=== PATIENT | female | born 1965 | race Caucasian/White ===

== ENCOUNTER 2024-06-29 13:12 | Outpatient (AMB) | payer BC, SELFPAY ==
--- NOTE | 2024-06-29 13:24 | A.OFFPC_ITS ---
Vital Signs 06/29/24 13:30 Height 5 ft 2 in Weight 148 lb 4 oz BMI 27.1 BP 110/72 Blood Pressure Location Lt brachial Position Sitting Respiration 12 Pulse 73 Pulse Source Pulse Oximeter Pulse Oximetry (%) 98 Oxygen Delivery Method Room Air Intake Visit Reasons: Annual pe Intake Note: New patient visit Lien Searcher Required: No Allergies No Known Allergies Allergy (Verified 06/29/24 13:24) Tobacco use date assessed: 06/29/24 Dental Screening Dental Screen Date: 06/29/24 Did you have a dental visit in the last 12 months?: Yes Did you have a dental problem in the last 6 months where you did not have access to dental care?: Yes Was dental information given to patient?: Patient has dentist HPI HPI Comments History of Present Illness Details The is a 59 year old female wih a past medical history of GERD, menopause, OA, seasonal allergies, endomteroioid carcinoma, cervical DDD presenting for follow up Heme/Onc: 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 Underwent hysterectomy, BLSO and left external iliace and right obturator sentinel LN biopsy. Follow ups are out to annually GI: Had EGD with Dr Newman. No H pylori or barretts OA: She has a history of C4-C7 cervical fusion and bilateral hip replacement surgeries Got an 11 and 12 year old foster children. Doing well Mammo: to be scheduled Cologuard 04/02/2022 [facility] Surgical History History of bilateral breast reduction surgery H/O section History of right hip replacement History of left hip replacement H/O esophagogastroduodenoscopy S/P complete hysterectomy Family History Mother Alcoholism Lupus (systemic lupus erythematosus) Father Alcoholism Non Hodgkin's lymphoma Paternal Grandmother Depression Other Substance use Social History Housing: House Alcohol intake: former Comment: Hasnt had a drink in 4 years Patient Tobacco Use Status: Former Tobacco user Cigarettes Per Day: 4 Years Smoked: 1 e-Cigarette/Vaping Use: Never Used service: No Current occupational status: employed 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 1. Little interest or pleasure in doing things: not at all 2. Feeling down, depressed, or hopeless: not at all 3. Trouble falling or staying asleep, or sleeping too much: not at all 4. Feeling tired or having little energy: not at all 5. Poor appetite or overeating: not at all 6. Feeling bad about yourself - or that you are a failure or have let yourself or your family down: not at all 7. Trouble concentrating on things, such as reading the newspaper or watching television: not at all 8. Moving or speaking so slowly that other people could have noticed. Or the op posite - being so fidgety or restless that you have been moving around a lot more than usual: not at all 9. Thoughts that you would be better off or of hurting yourself in some way: not at all Total score: 0 Depression Screening Interpretation: Negative Depression Screening Done: Yes 32407 - PHQ-9 Billing: Yes Source: Developed by Drs. Ga Quiroga, Maria Alejandra Stanley, Joey Rodriguez and colleagues, with an educational elizabeth from [employer]. Thrive Questionnaire Date Thrive assessed: 06/29/24 I am a: Patient What is your living situation today?: I have a steady place to live Within the past 12 months, did the food you bought not last and you didn't have the money to get more?: Never true Within the past 12 months, did you worry whether your food would run out before you got money to buy more?: Never true Do you have trouble paying for medicines?: No Do you have trouble getting transportation to medical appointments?: No Do you have trouble paying your heating and electricity bill?: No Do you have trouble taking care of your child, family member or friend?: No Do you have trouble with day-to-day activities such as bathing, preparing meals, shopping, managing finances, etc.?: No Are you currently unemployed and looking for a job?: No Are you interested in more education?: No Please select the resources that you would like help with: None Currently or been in a relationship where the following occur: No concerns reported THRIVE Score: 0 AUDIT C Alcohol Use Questionnaire (AUDIT-C) 1. How often do you have a drink containing alcohol?: Never 3. How often do you have six or more drinks on one occasion?: Never Total Score: 0 PUNEET-7 AMB Questionnaire PUNEET-7 Date PUNEET - 7 assessed: 06/29/24 Feeling nervous, anxious, or on edge: 0 = Not at all Not being able to stop or control worryin = Not at all Worrying too much about different things: 0 = Not at all Trouble relaxin = Not at all Being so restless that it is hard to sit still: 0 = Not at all Becoming easily annoyed or irritable: 0 = Not at all Feeling afraid as if something awful might happen: 0 = Not at all Total PUNEET-7 score (0-4 normal; 5-9 mild; 10-14 moderate; 15-21 severe): 0 Source: Developed by Drs. Ga Quiroga, Maria Alejandra Stanley, Joey Rodriguez and colleagues, with an educational elizabeth from [employer]. PUNEET-7 Assessment Billing PUNEET-7 Assessment Tool: PUNEET-7 Assessment 14318 Physical exam (Primary Care) Vital Signs: Last Vital Signs Pulse 73 06/29/24 13:30 Resp 12 06/29/24 13:30 BP 110/72 06/29/24 13:30 Pulse Ox 98 06/29/24 13:30 Oxygen Delivery Method Room Air 06/29/24 13:30 BMI result Body Mass Index 27.1 Tobacco/Smoking Status: Tobacco use Status Tobacco use date assessed 06/29/24 06/29/24 13:33 Patient Tobacco Use Status Former Tobacco user 06/29/24 13:33 e-Cigarette/Vaping Use Never Used 06/29/24 13:33 PHQ-9: PHQ-9 Score PHQ-9: Total score 0 06/29/24 13:24 Depression Screening Interpretation: Negative Currently or been in a relationship where the following occur: No concerns reported Coding Level of Care Code Est Pt Level 4 (23339) Diagnoses Endometrial cancer C54.1 Degenerative disc disease, cervical M50.30 Additional Codes PUNEET-7 Assessment Billing - PUNEET-7 Assessment Tool: PUNEET-7 Assessment 99898 ([id number]) Assessment & Plan Assessment & Plan (1) Endometrial cancer: Code(s): C54.1 - Malignant neoplasm of endometrium Category: Medical Plan: 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 Panel Today Z13.0 - Encounter for screening for diseases of the blood and blood-forming organs and certain disorders involving the immune mechanism, Z13.220 - Encounter for screening for lipoid disorders, Z13.228 - Encounter for screening for other metabolic disorders Lipid Panel Today Z13.0 - Encounter for screening for diseases of the blood and blood-forming organs and certain disorders involving the immune mechanism, Z13.220 - Encounter for screening for lipoid disorders, Z13.228 - Encounter for screening for other metabolic disorders IRON PROFILE Today Z86.39 - Personal history of other endocrine, nutritional and metabolic disease
[2024-06-29 13:30] VITALS: BP 110/72; PULSE 73; RESP 12; O2SAT 98; BMI 27.1
== END 2024-06-29 13:54 | disposition home or self-care (01) ==
LOC: HO.HMCFM 13:12
PROVIDERS: PCP Internal Medicine; Visit Provider Internal Medicine
DX: C54.1 Malignant neoplasm of endometrium (principal); M50.30 Other cervical disc degeneration, unspecified cervical region

== ENCOUNTER → 2024-06-29 13:12 | Outpatient (BNVA) | payer BC, SELFPAY | PROVIDERS: Visit Provider Internal Medicine | DX: C54.1 Malignant neoplasm of endometrium (principal); M50.30 Other cervical disc degeneration, unspecified cervical region | CPT/HCPCS: 96127 ==

== ENCOUNTER 2024-06-29 14:03 | Outpatient (REF) | payer BC, SELFPAY ==
[2024-06-29 17:45] LABS: MANUAL DIFF FLAG NO
[2024-06-29 18:12] LABS: Alanine Aminotransferase 19 U/L (0-31); Alkaline Phosphatase 65 U/L (39-117); Anion Gap 8 (12-20); Aspartate Amino Transferase 19 U/L (5-31); Bilirubin Total 0.3 mg/dL (0.0-1.0); Blood Urea Nitrogen 7 mg/dL (9-16); Calcium 9.6 mg/dL (8.4-10.2); Carbon Dioxide 27 mmol/L (22-29); Chloride 107 mmol/L (96-108); Cholesterol 200 mg/dL (<200); Estimated Glomerular Filt Rate > 60; Glucose Random 89 mg/dL (60-115); HDL Cholesterol 54 mg/dL (>40); Iron 61 mcg/dL (30-160); LDL Cholesterol Calculated 120 mg/dL (<100); Percent Iron Saturation 24 % (15-50); Potassium 4.3 mmol/L (3.3-5.1); Sodium 138 mmol/L (135-145); Total Iron Binding Capacity 252 mcg/dL (228-428); Total Protein 6.8 g/dL (6.5-8.0); Triglycerides 133 mg/dL (<150); Unsaturated Iron Binding 191 ug/dL
[2024-06-29 18:19] LABS: Basophils Absolute Auto 0.1 X10*3/uL (0.0-0.2); Basophils Percent Auto 0.8 % (0-2); Eosinophils Absolute Auto 0.2 X10*3/uL (0.0-0.4); Eosinophils Percent Auto 2.6 % (0-4); Hematocrit 39.6 % (37.0-47.0); Hemoglobin 13.1 g/dl (12.0-16.0); Imm Gran Abs Auto 0.02 X10*3/uL (0.00-0.03); Imm Gran Pct Auto 0.2 % (0.0-0.4); Lymphocytes Absolute Auto 3.3 X10*3/uL (1.2-4.9); Lymphocytes Percent Auto 38.6 % (20-40); Mean Corpuscular HGB Conc 33.1 g/dl (31.0-35.0); Mean Corpuscular Hemoglobin 28.5 pg (27.0-33.0); Mean Corpuscular Volume 86.3 fL (80.0-98.0); Mean Platelet Volume 8.9 fL (9.4-12.3); Monocytes Absolute Auto 0.6 X10*3/uL (0.1-1.2); Monocytes Percent Auto 6.5 % (2-11); Neutrophils Absolute Auto 4.4 x10*3/uL (2.0-8.3); Neutrophils Percent Auto 51.3 % (45-73); Platelet Count 344 X10*3/uL (160-400); Red Blood Count 4.59 X10*6/uL (4.20-5.50); Red Cell Distribution Width 13.1 % (11.0-16.0); White Blood Count 8.6 X10*3/uL (4.8-10.8)
== END 2024-06-29 14:04 | disposition home or self-care (01) ==
LOC: HO.WFDLDS 14:03
PROVIDERS: Visit Provider Internal Medicine
DX: Z13.0 Encounter for screening for diseases of the blood and blood-forming organs and certain disorders involving the immune mechanism (principal); Z13.228 Encounter for screening for other metabolic disorders; Z13.220 Encounter for screening for lipoid disorders; Z86.39 Personal history of other endocrine, nutritional and metabolic disease
CPT/HCPCS: 36415; 80053; 80061; 83540; 85025

== ENCOUNTER 2024-08-31 09:25 | Outpatient (REF) | payer BC, SELFPAY ==
--- NOTE | ~2024-08-31 | XR_ITS ---
EXAMINATION: XR SHOULDER 2 OR MORE VIEWS RIGHT HISTORY: M25.511 - Pain in right shoulder COMPARISON: There are no prior studies available for comparison. FINDINGS: Two views of the right shoulder are submitted. Osseous mineralization is normal. There is no fracture or dislocation. There is severe osteoarthritis of the AC joint with joint space narrowing and osteophyte formation. The glenohumeral joint is maintained. The soft tissues are unremarkable. A fusion plate is noted in the cervical spine. XR/XR shoulder RT min 2V IMPRESSION: Severe osteoarthritis of the AC joint. Electronically signed by: Ga Rodgers MD 09/03/2024 08:47 AM EST
== END 2024-08-31 09:26 | disposition home or self-care (01) ==
LOC: HO.HOSX 09:25
PROVIDERS: Visit Provider Orthopaedic Surgery
DX: M25.311 Other instability, right shoulder (principal); M25.511 Pain in right shoulder
CPT/HCPCS: 73030

== ENCOUNTER 2024-08-31 12:47 | Outpatient (AMB) | payer BC, SELFPAY ==
[2024-08-31 12:55] VITALS: BMI 27.1
--- NOTE | 2024-08-31 12:55 | MHC.OFFVIS ---
Vital Signs 08/31/24 12:55 Height 5 ft 2 in Weight 148 lb 4 oz BMI 27.1 Intake Visit Reasons: Right shoulder pain and weakness Intake Note: Sumaya is a 59 year old female who presents with complaints of progressively worsening right shoulder pain and weakness. The patient states that she injured her right shoulder approximately 10 years ago. Since that time her symptoms have gotten worse. She has failed the last 6 weeks of conservative treatment. She has tried working with a geriatric personal care aide at the gym which aggravated her pain. She has also done physical therapy exercises which gave her minimal relief. She has tried Tylenol and anti-inflammatory medicines which gave her only mild relief. The patient states that she has had cortisone injections in the past which gave her no relief. The patient reports difficulty lifting her right hand above shoulder height. Allergies No Known Allergies Allergy (Verified 08/31/24 12:55) Medication List - Last Reviewed 08/31/24 by FLAQUITA Trejo ondansetron 4 mg PO Q8H PRN 30 days triamcinolone acetonide 0.1% 1 appl topical BID valacyclovir 2,000 mg (2 x 1 gram) PO BID PRN 1 day PFSH Surgical History History of bilateral breast reduction surgery H/O section History of right hip replacement History of left hip replacement H/O esophagogastroduodenoscopy S/P complete hysterectomy Family History Mother Alcoholism Lupus (systemic lupus erythematosus) Father Alcoholism Non Hodgkin's lymphoma Paternal Grandmother Depression Other Substance use Social History Housing: House Alcohol intake: former Comment: Hasnt had a drink in 4 years Patient Tobacco Use Status: Former Tobacco user Cigarettes Per Day: 4 Years Smoked: 1 e-Cigarette/Vaping Use: Never Used service: No Current occupational status: employed 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/hazards: Yes (works on around kids, illness) Cognitive needs: No Hearing needs: No Vision needs: No Physical Exam Vital Signs: BMI result Body Mass Index 27.1 Const Other: Well-nourished well-developed very friendly female awake alert and oriented x3 in no acute distress Extrem Other: Bilateral upper extremity examination shows good capillary refill, no skin lesions noted, normal sensation light touch Right shoulder examination shows decreased range of motion when compared to her left shoulder, 4+ out of 5 strength with supraspinatus testing, positive impingement signs, tenderness over her acromioclavicular joint, no instability Results Reviewed Results Reviewed: X-rays of the patient's right shoulder show severe acromioclavicular joint narrowing, a type 2 acromion, no acute bony abnormalities Assessment & Plan Assessment & Plan (1) Rotator cuff insufficiency of right shoulder: Code(s): M25.311 - Other instability, right shoulder Category: Medical Plan Ms. Luevano presents with progressively worsening right shoulder pain and weakness due to impingement syndrome and possible full-thickness rotator cuff tearing. Thus, I will send the patient for an MRI of her right shoulder for further evaluation. I will see her back once the MRI is completed to discuss the findings and treatment options. She will continue with her [id number] exercises in the meantime to prevent stiffness. Feel free to call me at any time should questions regarding her orthopedic management arise. I spent 21 minutes in reviewing the patient's records and imaging studies, seeing the patient and documenting in the medical record. Orders: Orders XR shoulder RT min 2V Today M25.511 - Pain in right shoulder MR shoulder RT wo con Today M25.311 - Other instability, right shoulder Coding Level of Care Code Est Pt Level 3 (45640) Complex EM visit Add On G2211 Diagnoses Rotator cuff insufficiency of right shoulder M25.311
== END 2024-08-31 13:21 | disposition home or self-care (01) ==
PROVIDERS: PCP Internal Medicine; Visit Provider Orthopaedic Surgery
DX: M25.311 Other instability, right shoulder (principal)
CPT/HCPCS: 99213

== ENCOUNTER → 2024-08-31 12:50 | Outpatient (BNV) | payer BC, SELFPAY | PROVIDERS: Visit Provider Radiology Diagnostic Radiology | DX: M19.011 Primary osteoarthritis, right shoulder (principal) | CPT/HCPCS: 73030 ==

== ENCOUNTER → 2024-09-21 09:48 | Outpatient (BNV) | payer BC, SELFPAY | PROVIDERS: PCP Internal Medicine; Visit Provider Radiology Diagnostic Radiology | DX: M75.121 Complete rotator cuff tear or rupture of right shoulder, not specified as traumatic (principal); M67.813 Other specified disorders of tendon, right shoulder; M19.011 Primary osteoarthritis, right shoulder | CPT/HCPCS: 73221 ==

== ENCOUNTER 2024-09-21 09:58 | Outpatient (REF) | payer BC, SELFPAY ==
--- NOTE | ~2024-09-21 | MR_ITS ---
CLINICAL HISTORY: M25.311 - Other instability, right shoulder MR right shoulder without gadolinium Comparison: DX/SR - XR SHOULDER RT MIN 2V - 08/31/24 12:50 EST Findings: No acute fracture or pathologic bone lesion. There is moderate periarticular osteophyte formation at the acromioclavicular and glenohumeral joints. Type II acromion. No effusion. There is full-thickness tearing and atrophy of the entire supraspinatus tendon. There is mild T2 signal elevation diffusely throughout the infraspinatus tendon at the humeral insertion site extending to the musculotendinous junction, indicating tendinopathy. Superimposed low-grade partial-thickness intrasubstance and bursal surface tears of the anterior and mid infraspinatus tendon at the humeral insertion site extending to the musculotendinous junction. Subscapularis and teres minor tendons are intact. No tears of the long head of biceps tendon. Posterior labral undercutting is present. IMPRESSION: 1. Full-thickness tearing and atrophy of the supraspinatus tendon. 2. Infraspinatus tendinopathy with low-grade tearing. 3. Acromioclavicular and glenohumeral joint osteoarthritis. 4. Glenoid labral tearing. This document has been electronically signed by: Marshall Casillas MD on 09/21/2024 14:40:22
--- OUTSIDE RECORDS SUMMARY | 2024-09-21 10:46 | XMS_ITS | Clinical Summary ---
Author Organization [facility] Address [address] [place] [address] Care Team Providers Care Travel Physical Therapist Name Role Phone Susy De Santiago MD Primary Care Provider [phone] Allergies No known active allergies Medications Medication Sig Dispensed Refills Start Date End Date Status meloxicam (MOBIC) 7.5 MG tablet TK 1 T PO D WF 1 03/04/2018 Active raNITIdine (ZANTAC) 150 MG tablet Take 150 mg by mouth 2 (two) times a day. 0 Active traZODone (DESYREL) 100 MG tablet trazodone 100 mg tablet 0 Active SUMAtriptan (IMITREX) 50 MG tablet sumatriptan 50 mg tablet 0 Active sulindac (CLINORIL) 200 MG tablet sulindac 200 mg tablet 0 Active albuterol 108 (90 Base) MCG/ACT inhaler ProAir HFA 90 mcg/actuation aerosol inhaler INHALE 2 PUFFS PO INTO THE LUNGS Q 4 H PRN FOR SOB FOR UP TO 180 DAYS 0 Active phenazopyridine (PYRIDIUM) 100 MG tablet phenazopyridine 100 mg tablet 0 Active oxyCODONE-acetami nophen (PERCOCET) 5-325 MG per tablet oxycodone-acetaminoph en 5 mg-325 mg tablet TK 1 TO 2 TS PO Q 6 H PRN P 0 Active warfarin (COUMADIN) 1 MG tablet 1 07/15/2018 Active oxyCODONE (ROXICODONE) 5 MG immediate release tablet TK 1 TO 2 TS PO Q 4 TO 6 H PRN 0 07/23/2018 Active gabapentin (NEURONTIN) 300 MG capsule 0 07/15/2018 Active enoxaparin (LOVENOX) 40 MG/0.4ML SOLN 1 07/15/2018 Active cyclobenzaprine (FLEXERIL) 5 MG tablet cyclobenzaprine 5 mg tablet 0 Active amoxicillin (AMOXIL) 500 MG tablet Take 4 tabs 1 hour prior to dental procedure 20 tablet 3 07/28/2018 Active Additional Information Patient not taking.Reported on 10/21/2022 warfarin (COUMADIN) 1 MG tablet Take 5 tabs daily or as directed by physician 25 tablet 0 08/05/2018 Active Additional Information Patient not taking.Reported on 10/21/2022 estradiol (ESTRACE) 2 MG tablet Take 1 tablet (2 mg total) by mouth daily. 0 Active progesterone (PROMETRIUM) capsule 200 mg Take 1 capsule (200 mg total) by mouth every night at bedtime. 0 Active Fluticasone Propionate, Inhal, (Flovent Diskus) 250 MCG/ACT AEPB Inhale 250 mcg into the lungs as needed. 0 Active estradiol (Estring) [address] 2 mg vaginally every 3 (three) months. follow package directions 0 Active famotidine (PEPCID) 20 MG tablet Take 1 tablet (20 mg total) by mouth 2 (two) times a day. 0 Active Active Problems Problem Noted Date Diagnosed Date Hamstring strain, right, initial encounter 10/08 Postop check 07/28/2018 Social History Tobacco Use Types Packs/Day Years Used Date Smoking Tobacco: Former Cigarettes Smokeless Tobacco: Former Tobacco Cessation:Counseling Given: Not Answered Alcohol Use Standard Drinks/Week Comments Not Currently 0 (1 standard drink = 0.6 oz pur e alcohol) Sex and Gender Information Value Date Recorded Sex Assigned at Not on file Gender Identity Not on file Sexual Orientation Not on file Job Start Date Occupation Industry Not on file Not on file Not on file Last Filed Vital Signs Vital Sign Reading Time Taken Comments Blood Pressure 125/80 10/21/2022 8:39 AM EST Pulse - - Temperature 36.3 ??C (97.4 ??F) 10/21/2022 8:39 AM ES T Respiratory Rate - - Oxygen Saturation 99% 10/21/2022 8:39 AM EST Inhaled Oxygen Concentration - - Weight 78.9 kg (174 lb) 10/21/2022 8:39 AM EST Height 160 cm (5' 3 ) 10/21/2022 8:39 AM EST Body Mass Index 30.82 10/21/2022 8:39 AM EST Plan of Treatment Health Maintenance Due Date Last Done Comments Hepatitis B Vaccines (1 of 3 - 3-dose series) 1966 Hepatitis C Screening 1966 COVID-19 Vaccine (#1) 1966 Depression Screening 1978 BMI Counseling 02/06/1984 Preventative Health Evaluation 02/06/1984 Cervical Cancer Screening (Pap Smear) 1987 Colon Cancer Screening (Colonoscopy) 2011 Breast Cancer Screening (Mammogram) 02/06/2016 Shingrix-Zoster Vaccine (1 o f 2) 02/06/2016 DTap / Tdap / Td (2 - Td or Tdap) 04/07/2022 04/07/2012, 08/09/1993 Influenza Vaccine (#1) 2024 Pneumococcal Vaccine Aged Out No long er eligible based on patient's age to complete this topic RSV Ped < 20 months Aged Out No longe r eligible based on patient's age to complete this topic Insurance Payer Benefit Plan / Group Subscriber ID Effective Dates Phone Address [facility] [id number] 02/23-Pres ent [address] [place] [address] [facility] [id number] 2020-Pres ent [address] [place] [address] Care Teams Travel Physical Therapist Relationship Specialty Start Date End Date Susy De Santiago MD PCP - General Internal Medicine 09/25/22
--- OUTSIDE RECORDS SUMMARY | 2024-09-21 10:46 | XMS_ITS | Encounter Summary ---
Author Organization [facility] Address [address] [place] [address] Care Team Providers Care Donor Floor Technician Name Role Phone Unavailable Primary Care Provider Unavailabl e Encounter Details Date Type Department Care Team (Latest Contact Info) Description 09/15/2020 Lab Requisition [facility] COVID [address] Through [address] [place] [address] [address] [place] [address] Sukhwinder Pickett MD [address] [place] [address] Encounter for laboratory testing for COVID-19 virus Social History Tobacco Use Types Packs/Day Years Used Date Smoking Tobacco: Never Assessed Sex and Gender Information Value Date Recorded Sex Assigned at Not on file Gender Identity Not on file Sexual Orientation Not on file documented as of this encounter Plan of Treatment Not on file documented as of this encounter Procedures Procedure Name Priority Date/Time Associated Diagnosis Comments COVID-19 (SARS-COV-2) - [facility] Routine 09/15/2020 4:18 PM EST Encounter for laboratory testing for COVID-19 virus [ICD-10-CM] documented in this encounter Results * (ABNORMAL) COVID-19 (SARS-COV-2) (SEMA4) (09/15/2020 4:18 PM EST) COVID-19 RT-PCR DETECTED( A) Not-Detec venkatesh 09/16/2020 4:09 PM EST [facility] Comment:Interpretation: The viral RNA was detected, consistent with the diagnosis of COVID-19. Correlation with clinical findings is highly recommended.Final report signed by Titus Monzon, Ph.D., Laboratory DirectorTests performed at [facility] Microbiology Nasopharyngeal swab / Unknown 09/15/2020 4:18 PM EST 09/15/2020 4:18 PM EST Narrative ALIRIOJeniffer MATEUS BUCKNERLILIANA - 09/16/2020 4:09 PM EST Performed by [facility] [employer] [address] [place] [address], CLIA# [id number] and [place] License# [id number] Sukhwinder Pickett MD MICROBIOLOGY - GENER AL ORDERABLES Performing Organization Address City/State/[facility] Co mt Phone Number YONY RUIZ documented in this encounter Visit Diagnoses Diagnosis Encounter for laboratory testing for COVID-19 virus documented in this encounter
--- OUTSIDE RECORDS SUMMARY | 2024-09-21 10:46 | XMS_ITS | Clinical Summary ---
Author Organization [facility] Address [address] [place] [address] Care Team Providers Care Project Administrator Name Role Phone Susy De Santiago MD Primary Care Provider [phone] Surgical History Surgery Date Site/Laterality Comments SECTION PROCEDURE: HISTORICAL DELIVERY; COMMENT: x3 OTHER SURGICAL HISTORY 1997 PROCEDURE: [place] BIOPSY SOFT TISSUE BACK/FLANK DEEP; COMMENT: cysts removed off back SECTION PROCEDURE: [place] DELIVERY ONLY OTHER SURGICAL HISTORY PROCEDURE: [place] UNLISTED LAPAROSCOPY PROCEDURE STOMACH; COMMENT: lap band NECK SURGERY 02/02/2015 PROCEDURE: HISTORICAL NECK SURGERY; COMMENT: Dr Maddie Da Silva;C5-6;C6-7 ACDF HIP ARTHROPLASTY 07/13/2018 Right PROCEDURE: HISTORICAL HIP REPLACEMENT HIP ARTHROPLASTY 01/25/2019 Left PROCEDURE: HISTORICAL HIP REPLACEMENT; COMMENT: Dr. White BREAST SURGERY PROCEDURE: [place] UNLISTED PROCEDURE BREAST; COMMENT: reduction Medical History Medical History Date Comments Obesity, morbid (CMS/HCC) DX:Obe sity, morbid (HCC); COMMENT: lap banding 02/28 Other specified personal his tory presenting hazards to health(V15.89) DX:Other specifie d personal history presenting hazards to health(V15.89) Microcytic anemia 10/19/2010 DX:Microcytic anemia DDD (degenerative disc disea se), cervical 02/17/2018 DX:DDD (degenerative disc di sease), cervical Family History Medical History Relation Name Comments Other: non-hodgkins lymphoma Father Other: Leukemia Maternal Grandfather Other: Lupus Maternal Grandmother Hyperlipidemia Mother Hypertension Mother Other: Lupus Mother Other: angina Mother Other: fibroid tumors/hysterectomy Mother Breast cancer Neg Hx Relation Name Status Comments Brother 1 Alive Brother 2 Alive Brother 3 Alive Brother 4 Alive Father Alive Maternal Grandfather Maternal Grandmother Mother Alive Paternal Grandfather Paternal Grandmother Sister Alive Son 1 Alive Son 2 Alive Son 3 Alive Social History Tobacco Use Types Packs/Day Years Used Date Smoking Tobacco: Never Smokeless Tobacco: Never Alcohol Use Standard Drinks/Week Comments Yes 0 (1 standard drink = 0.6 oz pur e alcohol) Sex and Gender Information Value Date Recorded Sex Assigned at Not on file Gender Identity Not on file Sexual Orientation Not on file Obstetrics History Last Filed Vital Signs Vital Sign Reading Time Taken Comments Blood Pressure 125/80 10/21/2022 8:39 AM EST Sit ting Left arm Pulse - - Temperature - - Respiratory Rate - - Oxygen Saturation - - Inhaled Oxygen Concentration - - Weight 78.9 kg (174 lb) 10/21/2022 8:39 AM EST Height 160 cm (5' 3 ) 10/21/2022 8:39 AM EST Body Mass Index 30.82 10/21/2022 8:39 AM EST Plan of Treatment Health Maintenance Due Date Last Done Comments Hepatitis B Vaccines (1 of 3 - 19+ 3-dose series) 1985 Cervical Cancer Screening: Pap Smear 1987 Zoster Vaccines (1 of 2) 02/06/2016 DTaP,Tdap,and Td Vaccines (3 - Td or Tdap) 04/07/2022 04/07/2012, 08/09/1993 Colorectal Cancer Screening: Colonoscopy 07/28/2022 Depression Screening 07/28/2022 HIV Screening 07/28/2022 Hepatitis C Screening 07/28/2022 Social Influencers of Health Screening 07/28/2022 COVID-19 Vaccine ( season) 2024 Influenza Vaccine (#1) 2024 Breast Cancer Screening 04/10/2025 04/10/20 23, 03/27/2021, 03/13/2020, Additional history exists MMR Vaccines Aged Out 05/05/2012, 04/07/2012 No lo nger eligible based on patient's age to complete this topic HIB Vaccines Aged Out No longer eligi ble based on patient's age to complete this topic HPV Vaccines Aged Out No longer eligi ble based on patient's age to complete this topic Hepatitis A Vaccines Aged Out No long er eligible based on patient's age to complete this topic IPV Vaccines Aged Out No longer eligi ble based on patient's age to complete this topic Meningococcal ACWY Vaccine Aged Out N o longer eligible based on patient's age to complete this topic Pneumococcal Vaccine: Pediatrics (0 to 5 Years) and At-Risk Patients (6 to 64 Years) Aged Out No longer eligible based on patient's age to complete this topic RSV Immunization Patients Under 20 months Aged Out No longer eligible based on patient's age to complete this topic Varicella Vaccines Aged Out No longer eligible based on patient's age to complete this topic Procedures Procedure Name Priority Date/Time Associated Diagnosis Comments SCREENING MAMMOGRAPHY BI 2-VIEW BREAST INC CAD Routine 04/10/2023 11:08 AM EDT Encounter for other screening for malignant neoplasm of breast from Last 3 Months or Most Recently Relevant to Health Maintenance Results * SCREENING MAMMOGRAPHY BI 2-VIEW BREAST INC CAD (04/10/2023 11:08 AM EDT) Anatomical Region Laterality Modality Radiographic Rashida ging 03/31/2023 4:49 PM EDT Narrative 04/10/2023 5:42 PM EDT This is a summary report. The complete report is available in the patient's medical record. If you cannot access the medical record, please contact the sending organization for a detailed fax or copy. Exam: Screening mammogram Findings: Digital bilateral full-field screening mammography is performed with tomosynthesis and interpreted with the aid of computer-aided detection. ??Comparison is made with 03/27/2021 and as far back as 03/10/2019. ??History of bilateral reduction mammoplasty. Breast parenchyma is composed of scattered fibroglandular densities. ??No new suspicious mass, architectural distortion, or suspicious calcifications. Impression: No mammographic evidence of malignancy. BI-RADS 1 - negative Procedure Note Cesia Suarez MD - 09/30/2023 This is a summary report. The complete report is available in thepatient's medical record. If you cannot access the medical record, pleasecontact the sending organization for a detailed fax or copy. Exam: Screening mammogram Findings: Digital bilateral full-field screening mammography is performedwith tomosynthesis and interpreted with the aid of computer-aideddetection. Comparison is made with 03/27/2021 and as far back as 03/10/2019.History of bilateral reduction mammoplasty. Breast parenchyma is composed of scattered fibroglandular densities. Nonew suspicious mass, architectural distortion, or suspiciouscalcifications. Impression: No mammographic evidence of malignancy. BI-RADS 1 - negative Genie Bull MD IMG XR PROCEDURES from Last 3 Months or Most Recently Relevant to Health Maintenance Care Teams Project Administrator Relationship Specialty Start Date End Date Susy De Santiago MD PCP - General 09/25/22
--- OUTSIDE RECORDS SUMMARY | 2024-09-21 10:46 | XMS_ITS | Clinical Summary ---
Author Organization [facility] Address [address] [place] [address] Care Team Providers Care Psychiatric Assistant Name Role Phone Unavailable Primary Care Provider Unavailabl e Social History Tobacco Use Types Packs/Day Years Used Date Smoking Tobacco: Never Assessed Sex and Gender Information Value Date Recorded Sex Assigned at Not on file Gender Identity Not on file Sexual Orientation Not on file Plan of Treatment Health Maintenance Due Date Last Done Comments Hepatitis C Virus Screening 1966 HIV Screening 1979 DTaP/Tdap/Td Vaccines (1 - Tdap) 1985 Hepatitis B Vaccines (1 of 3 - 19+ 3-dose series) 1985 Pneumococcal Vaccines 50+ (1 of 1 - PCV) 02/06/2016 Zoster (Shingles) Vaccine (1 of 2) 02/06/2016 COVID-19 Vaccine ( - 2023-2 5 season) 2024 Pneumococcal Vaccine: Pediat [place] (0-5 Years) and At-Risk Patients (6 to 49 Years) Aged Out No longer eligible b ased on patient's age to complete this topic
== END 2024-09-21 09:59 | disposition home or self-care (01) ==
LOC: HO.MRI 09:58
PROVIDERS: PCP Internal Medicine; Visit Provider Orthopaedic Surgery
DX: M25.311 Other instability, right shoulder (principal); S46.811A Strain of other muscles, fascia and tendons at shoulder and upper arm level, right arm, initial encounter; M19.011 Primary osteoarthritis, right shoulder; X58.XXXA Exposure to other specified factors, initial encounter; Y93.9 Activity, unspecified; Y92.9 Unspecified place or not applicable; Y99.9 Unspecified external cause status
CPT/HCPCS: 73221

== ENCOUNTER 2024-10-27 09:23 | Outpatient (AMB) | payer BC, SELFPAY ==
--- NOTE | 2024-10-27 09:26 | A.OFFVIS_ITS ---
Vital Signs 10/27/24 09:27 Height 5 ft 2 in Weight 148 lb BMI 27.1 Intake Visit Reasons: OV-RT shoulder MRI review Intake Note: Sumaya is a 59 year old female who presents with complaints of progressively worsening right shoulder pain and weakness. The patient states that she injured her right shoulder approximately 10 years ago. Since that time her symptoms have gotten worse. She has failed the last 6 weeks of conservative treatment. She has tried working with a personal injury attorney at the gym which aggravated her pain. She has also done physical therapy exercises which gave her minimal relief. She has tried Tylenol and anti-inflammatory medicines which gave her only mild relief. The patient states that she has had cortisone injections in the past which gave her no relief. The patient reports difficulty lifting her right hand above shoulder height. Allergies No Known Allergies Allergy (Verified 10/27/24 09:27) Medication List - Last Reconciled 10/27/24 by Chi White MD ondansetron 4 mg PO Q8H PRN 30 days triamcinolone acetonide 0.1% 1 appl topical BID valacyclovir 2,000 mg (2 x 1 gram) PO BID PRN 1 day PFSH Surgical History History of bilateral breast reduction surgery H/O section History of right hip replacement History of left hip replacement H/O esophagogastroduodenoscopy S/P complete hysterectomy Family History Mother Alcoholism Lupus (systemic lupus erythematosus) Father Alcoholism Non Hodgkin's lymphoma Paternal Grandmother Depression Other Substance use Social History Housing: House Alcohol intake: former Comment: Hasnt had a drink in 4 years Patient Tobacco Use Status: Former Tobacco user Cigarettes Per Day: 4 Years Smoked: 1 e-Cigarette/Vaping Use: Never Used service: No Current occupational status: employed 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/hazards: Yes (works on around kids, illness) Cognitive needs: No Hearing needs: No Vision needs: No Physical Exam Vital Signs: BMI result Body Mass Index 27.1 Const Other: Well-nourished well-developed very friendly female awake alert and oriented x3 in no acute distress Extrem Other: Right shoulder examination shows decreased active range of motion but almost full passive range motion when compared to her left shoulder, 3/5 strength with supraspinatus testing, positive impingement signs, tenderness over her acromi oclavicular joint, no instability Results Reviewed Results Reviewed: MRI of the patient's right shoulder shows a full-thickness tear of the supraspinatus tendon with retraction almost to the edge of the glenoid, a type 2 acromion, no acute bony abnormalities Assessment & Plan Assessment & Plan (1) Rotator cuff insufficiency of right shoulder: Code(s): M25.311 - Other instability, right shoulder Category: Medical Plan Ms. Luevano presents with right shoulder pain and weakness due to a large, chronic rotator cuff tear. I had a lengthy discussion with the patient regarding the treatment options. I am not sure that a primary rotator cuff repair is possible at this point. The patient may be a candidate for a repair using a reinforcing patch or possible reverse total shoulder replacement surgery. Thus, I will have her evaluated by my partner, Dr. Enriquez, to further discuss her surgical treatment options. She will continue with her [id number] exercises in the meantime. Feel free to call me at any time should questions regarding her orthopedic management arise. I spent 22 minutes in reviewing the patient's records and imaging studies, seeing the patient and documenting in the medical record. Coding Level of Care Code Est Pt Level 3 (21216) Complex EM visit Add On G2211 Diagnoses Rotator cuff insufficiency of right shoulder M25.311
[2024-10-27 09:27] VITALS: BMI 27.1
--- OUTSIDE RECORDS SUMMARY | 2024-10-27 10:29 | XMS_ITS | Clinical Summary ---
Author Organization [facility] Address [address] [place] [address] Care Team Providers Care Olericulturist Name Role Phone Susy De Santiago MD Primary Care Provider Allergies No known active allergies Medications Medication [...] Group Subscriber ID Effective Dates Phone Address [facility] [id number] 02/23-Pres ent [address] [place] [address] [facility] [id number] 2020-Pres ent [address] [place] [address] Care Teams Olericulturist Relationship Specialty Start Date End Date Susy De Santiago MD PCP - General Internal Medicine 09/25/22
--- OUTSIDE RECORDS SUMMARY | 2024-10-27 10:29 | XMS_ITS | Clinical Summary ---
Author Organization [facility] Address [address] [place] [address] Care Team Providers Care Assistant Professor Of Nursing Name Role Phone Unavailable Primary Care Provider [...]
--- OUTSIDE RECORDS SUMMARY | 2024-10-27 10:29 | XMS_ITS | Clinical Summary ---
Author Organization [facility] Address [address] [place] [address] Care Team Providers Care Substance Abuse Services Director Name Role Phone Susy De Santiago MD Primary Care Provider [phone] Surgical History Surgery Date Site/Laterality Comments SECTION PROCEDURE: HISTORICAL DELIVERY; COMMENT: x3 OTHER SURGICAL HISTORY 1997 PROCEDURE: [place] BIOPSY SOFT TISSUE BACK/FLANK DEEP; COMMENT: cysts removed off back SECTION PROCEDURE: [place] DELIVERY ONLY OTHER SURGICAL HISTORY PROCEDURE: [place] UNLISTED LAPAROSCOPY PROCEDURE STOMACH; COMMENT: lap band NECK SURGERY 02/02/2015 PROCEDURE: HISTORICAL NECK SURGERY; COMMENT: Dr Maddie Da Silva;C5-6;C6-7 ACDF HIP ARTHROPLASTY 07/13/2018 Right PROCEDURE: HISTORICAL HIP REPLACEMENT HIP ARTHROPLASTY 01/25/2019 Left PROCEDURE: HISTORICAL HIP REPLACEMENT; COMMENT: Dr. White BREAST SURGERY PROCEDURE: [place] UNLISTED PROCEDURE BREAST; COMMENT: reduction Medical History [...] drink = 0.6 oz pur e alcohol) Comments Unknown Sex and Gender Information Value Date Recorded Sex Assigned at Not on file Legal Sex Female 11:01 PM EST Gender Identity Not on file Sexual Orientation [...] 1985 Cervical Cancer Screening: Pap Smear 1987 Pneumococcal Vaccine: 50+ Years (1 of 1 - PCV) 02/06/2016 Zoster Vaccines (1 of 2) 02/06/2016 DTaP,Tdap,and [...] patient's age to complete this topic Meningococcal B Vacine Aged Out No lo nger eligible based on patient's [...] evidence of malignancy. BI-RADS 1 - negative us Genie Bull MD IMG XR PROCEDURES Final Resu lt from Last 3 Months or Most Recently Relevant to Health Maintenance Care Teams Substance Abuse Services Director Relationship Specialty Start Date End Date Susy De Santiago MD PCP - General 09/25/22
--- OUTSIDE RECORDS SUMMARY | 2024-10-27 10:29 | XMS_ITS | Encounter Summary ---
Author Organization [facility] Address [address] [place] [address] Care Team Providers Care Substance Abuse Prevention Coordinator Name Role Phone Unavailable Primary Care Provider Unavailabl e Encounter Details Date Type Department Care Team (Latest Contact Info) Description 09/15/2020 Lab Requisition [facility] COVID [address] Through [address] [place] [address] [address] [place] [address] Sukhwinder Pickett MD [address] [place] [address] Encounter for laboratory testing for [...] Date/Time Associated Diagnosis Comments COVID-19 (SARS-COV-2) - [facility] Routine 09/15/2020 4:18 PM EST Encounter for laboratory testing for COVID-19 virus [ICD-10-CM] documented in this encounter Results * (ABNORMAL) COVID-19 (SARS-COV-2) (SEMA4) (09/15/2020 4:18 PM EST) COVID-19 RT-PCR DETECTED( A) Not-Detec venkatesh 09/16/2020 4:[address] [facility] Comment:Interpretation: The viral RNA was detected, consistent with the diagnosis of COVID-19. Correlation with clinical findings is highly recommended.Final report signed by Titus Monzon, Ph.D., Laboratory DirectorTests performed at [facility] Microbiology Nasopharyngeal swab / Unknown 09/15/2020 4:18 PM EST 09/15/2020 4:18 PM EST Narrative ALIRIOJeniffer MATEUS BUCKNERLILIANA - 09/16/2020 4:09 PM EST Performed by [facility] at work., [address] [place] [address], CLIA# [id number] and [place] License# [id number] Sukhwinder Pickett MD MICROBIOLOGY - GENER AL ORDERABLES Performing Organization Address City/State/[facility] [place] Phone Number YONY RUIZ documented in this encounter Visit Diagnoses Diagnosis Encounter for laboratory testing for COVID-19 virus documented in this encounter
== END 2024-10-27 09:55 | disposition home or self-care (01) ==
PROVIDERS: PCP Internal Medicine; Visit Provider Orthopaedic Surgery
DX: M25.311 Other instability, right shoulder (principal)
CPT/HCPCS: 99213

== ENCOUNTER 2024-11-26 09:57 | Outpatient (AMB) | payer BC, SELFPAY ==
[2024-11-26 10:03] VITALS: BMI 27.1
--- NOTE | 2024-11-26 10:03 | A.OFFVIS_ITS ---
Vital Signs 11/26/24 10:03 Height 5 ft 2 in Weight 148 lb BMI 27.1 Intake Visit Reasons: OV-RT shoulder RTC tear Intake Note: Sumaya is a 59 year old right hand dominant female who presents today for a follow up of her right shoulder. She was last seen with Dr. White where she reported an injury about 10+ years ago. IMPRESSION: 1. Full-thickness tearing and atrophy of the supraspinatus tendon. 2. Infraspinatus tendinopathy with low-grade tearing. 3. Acromioclavicular and glenohumeral joint osteoarthritis. 4. Glenoid labral tearing. Allergies No Known Allergies Allergy (Verified 10/27/24 09:27) HPI HPI OV-RT shoulder RTC tear: Details: Sumaya is a 59-year-old woman who comes in today with a history of right shoulder rotator cuff tear. She states she tore it 10 years ago and has been living with it ever since. She is extremely active. She describes difficulty raising her hand above her shoulder level and especially with activities that require even light lifting. She is tired of living in pain and came to see our office for consultation. An MRI was obtained and it showed a chronic tear of the supraspinatus with a intact subscapularis and infraspinatus. She also describes some painful popping, feels like her shoulder is subluxing, when she abducts and externally rotates. [facility] Surgical History (Updated 11/26/24 @ 10:05 by Flori Santoro [facility]) S/P cervical spinal fusion History of bilateral breast reduction surgery H/O section History of right hip replacement History of left hip replacement H/O esophagogastroduodenoscopy S/P complete hysterectomy Family History Mother Alcoholism Lupus (systemic lupus erythematosus) Father Alcoholism Non Hodgkin's lymphoma Paternal Grandmother Depression Other Substance use Social History Housing: House Alcohol intake: former Comment: Hasnt had a drink in 4 years Patient Tobacco Use Status: Former Tobacco user Cigarettes Per Day: 4 Years Smoked: 1 e-Cigarette/Vaping Use: Never Used service: No Current occupational status: employed 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 30/90/135/L5 Negative lift-off Positive apprehension and relocation. Results Reviewed Results Reviewed: I personally reviewed the MR images. There is full-thickness tearing and atrophy of the entire supraspinatus tendon. There is mild T2 signal elevation diffusely throughout the infraspinatus tendon at the humeral insertion site extending to the musculotendinous junction, indicating tendinopathy. Superimposed low-grade partial-thickness intrasubstance and bursal surface tears of the anterior and mid infraspinatus tendon at the humeral insertion site extending to the musculotendinous junction. Subscapularis and teres minor tendons are intact. Assessment & Plan Assessment & Plan (1) Rotator cuff insufficiency of right shoulder: Code(s): M25.311 - Other instability, right shoulder Category: Medical Plan: This is a 59-year-old woman with right shoulder chronic superior rotator cuff tear. She has remarkable motion and strength and I feel like a reverse total shoulder would be too aggressive for someone her age with some of her cuff intact. I do think she would benefit from arthroscopic surgery for her glenoid labrum, biceps and possible rotator cuff repair with collagen bio inductive implant versus superior capsular reconstruction. The MRI suggests chronic atrophy but can not be sure until surgery and I discussed this with her. What I suspect, however, is that intraoperatively there will be an unrepairable supraspinatus with an intact portion of the infraspinatus and an intact subscapularis. This is an indication for dermal allograft/SCR. I discussed the risks, benefits and alternatives of surgery with her including, but not limited to, the risk of infection, stiffness, need for additional surgery, pain, medical complications associated with surgery. I also explained the recovery time. She is amenable to this and we will proceed forward accordingly. All her questions were answered. Coding Level of Care Code Est Pt Level 4 (05632) Diagnoses Rotator cuff insufficiency of right shoulder M25.311
--- OUTSIDE RECORDS SUMMARY | 2024-11-26 11:15 | XMS_ITS | Clinical Summary ---
Author Organization [facility] Address [address] [place] [address] Care Team Providers Care Yarn Worker Name Role Phone Susy De Santiago MD Primary Care Provider [phone] Allergies No known active allergies Medications Medication [...] Group Subscriber ID Effective Dates Phone Address [facility] [id number] 02/23-Pres ent [address] [place] [address] [facility] [id number] 2020-Pres ent [address] [place] [address] Care Teams Yarn Worker Relationship Specialty Start Date End Date Susy De Santiago MD PCP - General Internal Medicine 09/25/22
--- OUTSIDE RECORDS SUMMARY | 2024-11-26 11:15 | XMS_ITS | Clinical Summary ---
Author Organization [facility] Address [address] [place] [address] Care Team Providers Care Guest Service Representative Name Role Phone Unavailable Primary Care Provider [...]
--- OUTSIDE RECORDS SUMMARY | 2024-11-26 11:15 | XMS_ITS | Clinical Summary ---
Author Organization [facility] Address [address] [place] [address] Care Team Providers Care Communication Equipment Repairer Name Role Phone Susy De Santiago MD Primary Care Provider [phone] Surgical History Surgery Date Site/Laterality Comments SECTION PROCEDURE: HISTORICAL DELIVERY; COMMENT: x3 OTHER SURGICAL HISTORY 1997 PROCEDURE: [place] BIOPSY SOFT TISSUE BACK/FLANK DEEP; COMMENT: cysts removed off back SECTION PROCEDURE: [place] DELIVERY ONLY OTHER SURGICAL HISTORY PROCEDURE: [place] UNLISTED LAPAROSCOPY PROCEDURE STOMACH; COMMENT: lap band NECK SURGERY 02/02/2015 PROCEDURE: HISTORICAL NECK SURGERY; COMMENT: Dr Maddie Da Silva;C5-6;C6-7 ACDF HIP ARTHROPLASTY 07/13/2018 Right PROCEDURE: HISTORICAL HIP REPLACEMENT HIP ARTHROPLASTY 01/25/2019 Left PROCEDURE: HISTORICAL HIP REPLACEMENT; COMMENT: Dr. White BREAST SURGERY PROCEDURE: [place] UNLISTED PROCEDURE BREAST; COMMENT: reduction Medical History [...] Recently Relevant to Health Maintenance Care Teams Communication Equipment Repairer Relationship Specialty Start Date End Date Susy De Santiago MD PCP - General 09/25/22
== END 2024-11-26 10:44 | disposition home or self-care (01) ==
LOC: HO.HOS 09:57
PROVIDERS: PCP Internal Medicine; Visit Provider Orthopaedic Surgery
DX: M25.311 Other instability, right shoulder (principal)
CPT/HCPCS: 99214

== ENCOUNTER 2024-12-08 08:08 | Day surgery (SDC) | payer BC, SELFPAY ==
--- OUTSIDE RECORDS SUMMARY | 2024-12-03 06:17 | XMS_ITS | Clinical Summary ---
Author Organization [facility] Address [address] [place] [address] Care Team Providers Care Veterinary Microbiologist Name Role Phone Susy De Santiago MD Primary Care Provider [phone] Surgical History Surgery Date Site/Laterality Comments SECTION PROCEDURE: HISTORICAL DELIVERY; COMMENT: x3 OTHER SURGICAL HISTORY 1997 PROCEDURE: AL BIOPSY SOFT TISSUE BACK/FLANK DEEP; COMMENT: cysts removed off back SECTION PROCEDURE: AL DELIVERY ONLY OTHER SURGICAL HISTORY PROCEDURE: AL UNLISTED LAPAROSCOPY PROCEDURE STOMACH; COMMENT: lap band NECK SURGERY 02/02/2015 PROCEDURE: HISTORICAL NECK SURGERY; COMMENT: Dr Maddie Da Silav;C5-6;C6-7 ACDF HIP ARTHROPLASTY 07/13/2018 Right PROCEDURE: HISTORICAL HIP REPLACEMENT HIP ARTHROPLASTY 01/25/2019 Left PROCEDURE: HISTORICAL HIP REPLACEMENT; COMMENT: Dr. White BREAST SURGERY PROCEDURE: AL UNLISTED PROCEDURE BREAST; COMMENT: reduction Medical History Medical History Date Comments Obesity, morbid (CMS/HCC V24 , CMS/HCC V28) DX:Obesity, morbid (HCC); CO MMENT: lap banding 02/28 Other specified personal his [...] Screening 07/28/2022 COVID-19 Vaccine ( season) 2024 Breast Cancer Screening 04/10/2025 04/10/20 23, 03/27/2021, 03/13/2020, Additional history exists Influenza Vaccine (Season Ended) 2025 MMR Vaccines Aged Out 05/05/2012, 04/07/2012 No [...] age to complete this topic Meningococcal B Vaccine Aged Out No l onger eligible based on patient's age to complete [...] Recently Relevant to Health Maintenance Care Teams Veterinary Microbiologist Relationship Specialty Start Date End Date Susy De Santiago MD PCP - General 09/25/22
--- OUTSIDE RECORDS SUMMARY | 2024-12-03 06:17 | XMS_ITS | Encounter Summary ---
Author Organization [facility] Address [address] [place] [address] Care Team Providers Care Crop Picker Name Role Phone Unavailable Primary Care Provider Unavailabl e Encounter Details Date Type Department Care Team (Latest Contact Info) Description 09/15/2020 Lab Requisition [facility] COVID Drive Through [address] [place] [address] [address] [place] [address] Sukhwinder Pickett MD [address] [place] [address] Encounter for laboratory testing for [...] Date/Time Associated Diagnosis Comments COVID-19 (SARS-COV-2) - [facility] Routine 09/15/2020 4:18 PM EST Encounter for laboratory testing for COVID-19 virus [ICD-10-CM] documented in this encounter Results * (ABNORMAL) COVID-19 (SARS-COV-2) ([facility]) (09/15/2020 4:18 PM EST) COVID-19 RT-PCR DETECTED( A) Not-Detec venkatesh 09/16/2020 4:09 PM EST [facility] - [place] Comment:Interpretation: The viral RNA was detected, consistent with the diagnosis of COVID-19. Correlation with clinical findings is highly recommended.Final report signed by Titus Monzon, Ph.D., Laboratory DirectorTests performed at [facility] Microbiology Nasopharyngeal swab / Unknown 09/15/2020 4:18 PM EST 09/15/2020 4:18 PM EST Narrative ALIRIOJeniffer MATEUS BUCKNERLILIANA - 09/16/2020 4:09 PM EST Performed by [employer] [employer] [address] [place] [address], CLIA# [id number] and [place] License# [id number] Sukhwinder Pickett MD MICROBIOLOGY - GENER AL ORDERABLES Performing Organization Address City/State/[facility] Co id Phone Number YONY RUIZ documented in this encounter Visit Diagnoses Diagnosis Encounter for laboratory testing for COVID-19 virus documented in this encounter
--- OUTSIDE RECORDS SUMMARY | 2024-12-03 06:17 | XMS_ITS | Clinical Summary ---
Author Organization [facility] Address [address] [place] [address] Care Team Providers Care Coke Oven Patcher Name Role Phone Unavailable Primary Care Provider [...]
[2024-12-08 08:24] VITALS: BP 107/64; PULSE 84; RESP 15; TEMP 37.2; O2SAT 98; BMI 27.0
--- NOTE | 2024-12-08 08:30 | MHC.SHP ---
Pre-Procedural Eval Section A - 24 Hr Update-Section A only Date of Service: 12/08/24 The patient is an INPATIENT: No Changes since office visit: No Cold of Flu in the past 2 weeks, No New Medical Problems, No Changes in Medication and No Patient answered all questions The patient has been examined within 24 hours of the surgical procedure. The History & Physical has been completed within 30 days and I have reviewed it.: Yes Section B - Complete if H&P > 30 days Chief Complaint: Complete rotator cuff tear or rupture of right arianna Allergies: Allergies Allergy/AdvReac Type Severity Reaction Status Date / Time No Known Allergies Allergy Verified 12/08/24 08:23 Plan I have reviewed the history and physical and performed a pertinent physical examination on my patient. No changes have occurred unless specified. Time Spent With Patient Time: Total time managing care of this patient today ____ minutes.
[2024-12-08] MEDS: Lactated Ringers 1,000 ML 50 ML IVCONT (08:37)
[2024-12-08] MEDS: ceFAZolin Sodium/Dextrose,Iso 2 GM/50 ML PIGGYBACK IV (09:15)
--- NOTE | 2024-12-08 10:14 | HO.ANESPROP2 ---
HPI - Anesthesia Eval Consult details Narrative: right shoulder arthroscopic surgery PMFSH Active Problems Active Problems: All Active Problems Rotator cuff insufficiency of right shoulder (Acute) Right shoulder pain (Acute) Degenerative disc disease, cervical (Acute) Endometrial cancer (Acute) History of iron deficiency (Acute) Screening for hyperlipidemia (Acute) Screening for metabolic disorder (Acute) Screening, deficiency anemia, iron (Acute) Past Medical History Medical History DDD (degenerative disc disease), cervical Endometrial cancer Seasonal allergies Osteoarthritis GERD (gastroesophageal reflux disease) Family History Family History Mother Alcoholism Lupus (systemic lupus erythematosus) Father Alcoholism Non Hodgkin's lymphoma Paternal Grandmother Depression Other Substance use Family history of problems with anesthesia: No Surgical History Surgical History S/P cervical spinal fusion History of bilateral breast reduction surgery H/O section History of right hip replacement History of left hip replacement H/O esophagogastroduodenoscopy S/P complete hysterectomy History of Problems with Anesthesia: No Social History Social History Housing: House Are you a primary senior resident care director to a significant other at home: No Do you presently have visiting nurse or other home services: No Alcohol intake: former Comment: Hasnt had a drink in 4 years Patient Tobacco Use Status: Former Tobacco user Tobacco use type: Cigarette Cigarettes Per Day: 4 Years Smoked: 1 Smoked in Last 30 Days: No e-Cigarette/Vaping Use: Never Used Use of substances other than those prescribed or required for medical reasons: No Have you been hit, kicked, punched, or otherwise hurt by someone within the past year? 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, illness) Cognitive needs: No Hearing needs: No Vision needs: No Meds Allergies Allergy/AdvReac Type Severity Reaction Status Date / Time No Known Allergies Allergy Verified 12/08/24 08:23 Active Medications: Current Medications Lactated Ringer's (Lr) 1,000 mls @ 50 mls/hr IVCONT .Q20H ROBBY Last Admin: 12/08/24 08:37 Dose: 50 mls/hr Home Medications ?Medication ?Instructions ?Recorded ?Confirmed ?Last Taken ?Type lansoprazole 30 mg capsule,delayed 30 mg PO DAILY 11/26/24 12/08/24 12/08/24 History release Exam Height,Weight and Vital Signs: Height 5 ft 2 in Weight 67 kg Last Vital Signs Temp 98.9 F 12/08/24 08:24 Pulse 84 12/08/24 08:24 Resp 15 12/08/24 08:24 BP 107/64 12/08/24 08:24 Pulse Ox 98 12/08/24 08:24 O2 Del Method Room Air 12/08/24 08:24 Airway Mallampati Class: II TM Dist: >3cm Neck ROM: Full Heart: rrr Lungs: cta Assessment and Plan Assessment Anesthesia Assessment: Anesthesia Plan Discussed and Chart Reviewed Final Anesthetic Review Family History of Problems with Anesthesia: No History of Problems with Anesthesia: No NPO: Yes ASA Class: II Final Preanesthetic Review: No Changes in Pt Med Stat, Meds/Allgs Chart Reviewed, Consent Obtained/Reviewed and Anes Risks/Benef Reviewed Patient Risk: Low Procedure Risk: Intermediate Anesthetic Plan Anesthetic Plan: GA, Regional Block and Agree w/ Assess. and Plan Disposition: Standard PACU
[2024-12-08] MEDS: Acetaminophen 1,000 MG/100 ML PIGGYBACK 400 MG IV (10:40)
[2024-12-08 11:35] VITALS: BP 129/60; PULSE 104; RESP 18; TEMP 36.4; O2SAT 97
--- NOTE | 2024-12-08 11:37 | PM.OP ---
Brief Operative Note Date of Service: 12/08/24 Pre-op diagnosis: Massive rotator cuff tear Post-op diagnosis: same Procedure: Rotator cuff repair, right Implants: Licea and Nephew double loaded healacoil x 2 and 5.5 Knotless helacoil x 2, Regeneten bioinductive collagen implant Surgeon: Kyle Enriquez MD Anesthesia: GETA Was an Administrative Services Coordinator used for this Procedure?: Yes Administrative Services Coordinator: Jana Hamilton Estimated blood loss (mL): 25 IV fluids (mL): 1,200 Pathology: none sent Condition: stable Disposition: PACU
[2024-12-08 11:40] VITALS: BP 106/59; PULSE 95; RESP 18; O2SAT 97
[2024-12-08 11:45] VITALS: BP 104/60; PULSE 94; RESP 20; O2SAT 96
[2024-12-08 11:50] VITALS: BP 102/61; PULSE 93; RESP 20; O2SAT 97
[2024-12-08 12:05] VITALS: BP 101/61; PULSE 89; RESP 16; TEMP 36.3; O2SAT 98
--- NOTE | 2024-12-09 16:38 | W.PM.OPN ---
Operative Note Operative Note Date of Service: 12/08/24 Narrative: Date of Service: 12/08/24 Pre-op diagnosis: Massive rotator cuff tear Post-op diagnosis: same Procedure: Rotator cuff repair, right with biceps tenotomy Implants: Licea and Nephew double loaded healacoil x 2 and 5.5 Knotless helacoil x 2, Regeneten bioinductive collagen implant Surgeon: Kyle Enriquez MD Anesthesia: GETA Was an Greek Professor used for this Procedure?: Yes Greek Professor: Jana Hamilton Estimated blood loss (mL): 25 IV fluids (mL): 1,200 Pathology: none sent Condition: stable Disposition: PACU Procedure in detail: Patient was brought to the operating room and placed the the beach chair position. All bony prominences were well padded and the limb was prepped and draped in standard sterile fashion. A time out was called to identify proper site, proper procedure and proper surgeon. IV antibiotics per weight were administered. I began by making a posterolateral stab incision with a 15 blade. A blunt trochar was placed into the glenohumeral joint and I insufflated the joint with saline and a 30 degree arthroscope was placed. I established an outside- in anterior portal just distal to the biceps tendon. I then began my inspection of the glenohumeral joint. There was a large degenerative SLAP tear and there was a high-grade partial tear of the biceps extending to the proximal aspect of the bicipital groove. There were minimal cartilage changes at the inferior glenoid and there were no humeral head changes. There was a full thickness retracted undersurface RTC tear. The subcapularis was intact. I debrided the loose cartilage of the glenoid and the degenerative labral tearing and performed a biceps tenotomy. I then removed the trochar and entered the subacromial space. A direct lateral portal was then established and I performed a bursectomy. The cuff was then examined. There was a full thickness tear of the supra and infraspinatus with retraction. The posterior infraspinatus was intact and the posterior 75% of the tear was mobile but there anterior half of the supraspinatus was retracted and difficult to reapproximate to the bare area. The quality of the tissue was good however. I established a 2nd lateral portal. I released anterior and medial fibers both superiorly and between the labrum and the undersurface of the cuff to try to mobilize the cuff. I placed two medial row double loaded anchors after using a tap just adjacent to the articular cartilage and then brought the suture limbs ( 8) through the medial cuff. I then debrided the bare area down to bleeding bone and, using a cross bridge configuration, brought 4 limbs to each of two lateral 5.5 anchors. I was forced to release a portion of the anterior supraspinatus to be able to create a tension-free repair. This re-approximated the infraspinatus and approximately 80% of the supraspinatus. The anterior 20% of the supraspinatus was too retracted. Because of the severity of the tear I placed a large Regeneten bio inductive collagen implant over the repair extending laterally over the bare area. Peek bone jed were used laterally and soft tissue jed used medially. Once I was satisfied with the repair and the patch placement final images were captured and I removed all instrumentation. Portals were closed with nylon. Patient was placed in an abduction sling, extubated and brought to the recovery room in stable condition. There were no known complications. LARGE REPAIR PROTOCOL
== END 2024-12-08 12:40 | disposition home or self-care (01) ==
LOC: HO.SSS 08:09
PROVIDERS: PCP Internal Medicine; Visit Provider Orthopaedic Surgery
PROC: (CPT 29805; principal; 2024-12-08 09:10)
DX: S46.011A Strain of muscle(s) and tendon(s) of the rotator cuff of right shoulder, initial encounter (principal); S43.431A Superior glenoid labrum lesion of right shoulder, initial encounter; M25.311 Other instability, right shoulder; M19.011 Primary osteoarthritis, right shoulder; G89.29 Other chronic pain; M25.511 Pain in right shoulder; X58.XXXA Exposure to other specified factors, initial encounter; Y93.9 Activity, unspecified; Y92.9 Unspecified place or not applicable; Y99.9 Unspecified external cause status; Z79.891 Long term (current) use of opiate analgesic
CPT/HCPCS: 29827; 29822; C1713; C1763; J0131; J0171; J0665; J0690; J1100; J2003; J2250; J2371; J2405; J2704; J3010

== ENCOUNTER → 2024-12-08 08:08 | Outpatient (BNV) | payer BC, SELFPAY | PROVIDERS: PCP Internal Medicine; Visit Provider Orthopaedic Surgery | DX: S46.011A Strain of muscle(s) and tendon(s) of the rotator cuff of right shoulder, initial encounter (principal); S43.431A Superior glenoid labrum lesion of right shoulder, initial encounter | CPT/HCPCS: 29827 ==

== ENCOUNTER 2024-12-16 09:39 | Outpatient (AMB) | payer BC, SELFPAY ==
--- NOTE | 2024-12-16 09:43 | A.OFFVIS_ITS ---
Intake Visit Reasons: PO RT Shoulder /poss RTC/subscap 12/08/24 NE Intake Note: Sumaya is a 59 year old - hand dominant female who presents today for a post operative appointment s/p right shoulder rotator cuff repair 12/08/24 NE. Patient reports - . Allergies No Known Allergies Allergy (Verified 12/08/24 08:23) HPI HPI PO RT Shoulder /poss RTC/subscap 12/08/24 NE: Details: Ms. Luevano is a 59-year-old female who presents to the office today status post large rotator cuff repair with biceps tenotomy on 12/08/[address] Enriquez. She presents to the office today in the sling. She reports that she has discomfort at night but she is able to manage. She is using ibuprofen and the Percocet for pain relief. Overall she is doing very well. [facility] Medical History DDD (degenerative disc disease), cervical Endometrial cancer Seasonal allergies Osteoarthritis GERD (gastroesophageal reflux disease) Surgical History S/P cervical spinal fusion History of bilateral breast reduction surgery H/O section History of right hip replacement History of left hip replacement H/O esophagogastroduodenoscopy S/P complete hysterectomy Family History Mother Alcoholism Lupus (systemic lupus erythematosus) Father Alcoholism Non Hodgkin's lymphoma Paternal Grandmother Depression Other Substance use Social History Housing: House Are you a primary customer care coordinator to a significant other at home: No Do you presently have visiting nurse or other home services: No Alcohol intake: former Comment: Hasnt had a drink in 4 years Patient Tobacco Use Status: Former Tobacco user Tobacco use type: Cigarette Cigarettes Per Day: 4 Years Smoked: 1 e-Cigarette/Vaping Use: Never Used service: No Current occupational status: employed 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 Sutures intact. No surrounding erythema or drainage. No signs of infection. 45 degrees forward flexion and abduction. External rotation to neutral. NVI. Assessment & Plan Assessment & Plan (1) S/P right rotator cuff repair: Code(s): Z98.890 - Other specified postprocedural states Category: Surgical Plan Ms. Luevano is a 59-year-old female who presents to the office today status post large rotator cuff repair with biceps tenotomy on 12/08/[address] Enriquez. She presents to the office today in the sling. She reports that she has discomfort at night but she is able to manage. She is using ibuprofen and the Percocet for pain relief. Overall she is doing very well. While in the office today, sutures are removed and Steri-Strips were applied. She was placed back into the sling. The sling will stay on at all times until 6 weeks postoperatively. No driving for 6 weeks. On outpatient physical description has been placed while in the office today, large rotator cuff repair protocol. She will follow up in [address] Enriquez, sooner if needed. Orders: Orders PT Evaluation and Treatment Today Z98.890 - Other specified postprocedural states Coding Level of Care Code Global (94920) Diagnoses S/P right rotator cuff repair Z98.890
--- OUTSIDE RECORDS SUMMARY | 2024-12-16 10:42 | XMS_ITS | Clinical Summary ---
Author Organization [facility] Address [address] [place] [address] Care Team Providers Care Soil Conservation Aide Name Role Phone Unavailable Primary Care Provider Unavailabl e Social History Tobacco Use Types Packs/Day Years Used Date Smoking Tobacco: Never Assessed Comments Unknown Sex and Gender Information Value Date Recorded Sex Assigned at Not on file Legal Sex Female 4:17 PM EST Gender Identity Not on file Sexual Orientation Not on file Plan of Treatment Health Maintenance Due Date Last Done Comments Hepatitis C Virus Screening 1966 HIV Screening 1979 DTaP/Tdap/Td Vaccines (1 - Tdap) 1985 Hepatitis B Vaccines (1 of 3 - 19+ 3-dose series) 01/23 Pneumococcal Vaccines 50+ (1 of 1 - PCV) 02/06/2016 Zoster (Shingles) Vaccine (1 of 2) 02/06/2016 COVID-19 Vaccine (1 - 2023- season) 2024
--- OUTSIDE RECORDS SUMMARY | 2024-12-16 10:42 | XMS_ITS | Clinical Summary ---
Author Organization [facility] Address [address] [place] [address] Care Team Providers Care Wastewater Manager Name Role Phone Susy De Santiago MD Primary Care Provider [phone] Surgical History Surgery Date Site/Laterality Comments SECTION PROCEDURE: HISTORICAL DELIVERY; COMMENT: x3 OTHER SURGICAL HISTORY 1997 PROCEDURE: ID BIOPSY SOFT TISSUE BACK/FLANK DEEP; COMMENT: cysts removed off back SECTION PROCEDURE: ID DELIVERY ONLY OTHER SURGICAL HISTORY PROCEDURE: ID UNLISTED LAPAROSCOPY PROCEDURE STOMACH; COMMENT: lap band NECK SURGERY 02/02/2015 PROCEDURE: HISTORICAL NECK SURGERY; COMMENT: Dr Maddie Da Silva;C5-6;C6-7 ACDF HIP ARTHROPLASTY 07/13/2018 Right PROCEDURE: HISTORICAL HIP REPLACEMENT HIP ARTHROPLASTY 01/25/2019 Left PROCEDURE: HISTORICAL HIP REPLACEMENT; COMMENT: Dr. White BREAST SURGERY PROCEDURE: ID UNLISTED PROCEDURE BREAST; COMMENT: reduction Medical History [...] Recently Relevant to Health Maintenance Care Teams Wastewater Manager Relationship Specialty Start Date End Date Susy De Santiago MD PCP - General 09/25/22
--- OUTSIDE RECORDS SUMMARY | 2024-12-16 10:42 | XMS_ITS | Clinical Summary ---
Author Organization [facility] Address [address] [place] [address] Care Team Providers Care Dispatcher Relay Name Role Phone Susy De Santiago MD Primary Care Provider [phone] Allergies No known active allergies Medications Medication [...] Group Subscriber ID Effective Dates Phone Address [facility] [id number] 02/23-Pres ent [address] [place] [address] [facility] [id number] 2020-Pres ent [address] [place] [address] Care Teams Dispatcher Relay Relationship Specialty Start Date End Date Susy De Santiago MD PCP - General Internal Medicine 09/25/22
--- OUTSIDE RECORDS SUMMARY | 2024-12-16 10:42 | XMS_ITS | Encounter Summary ---
Author Organization [facility] Address [address] [place] [address] Care Team Providers Care Geophysics Scientist Name Role Phone Unavailable Primary Care Provider Unavailabl e Encounter Details Date Type Department Care Team (Latest Contact Info) Description 09/15/2020 Lab Requisition [facility] COVID Drive Through [address] [place] [address] [address] [place] [address] Sukhwinder Pickett MD [address] [place] [address] Encounter for laboratory testing for [...] Date/Time Associated Diagnosis Comments COVID-19 (SARS-COV-2) - [facility] Routine 09/15/2020 4:18 PM EST Encounter for laboratory testing for COVID-19 virus [ICD-10-CM] documented in this encounter Results * (ABNORMAL) COVID-19 (SARS-COV-2) (SE[facility]4) (09/15/2020 4:18 PM EST) COVID-19 RT-PCR DETECTED( A) Not-Detec venkatesh 09/16/2020 4:09 PM EST [facility] - [place] Comment:Interpretation: The viral RNA was detected, consistent with the diagnosis of COVID-19. Correlation with clinical findings is highly recommended.Final report signed by Titus Monzon, Ph.D., Laboratory DirectorTests performed at [employer] [employer] Microbiology Nasopharyngeal swab / Unknown 09/15/2020 4:18 PM EST 09/15/2020 4:18 PM EST Narrative YONY RUIZ - 09/16/2020 4:09 PM EST Performed by [employer] [address] [place] [address], CLIA# [id number] and [place] License# [id number] us Sukhwinder Pickett MD MICROBIOLOGY - GENERAL ORDER GEORGE Final Result YONY MATEUS Rinku RUIZ documented in this encounter Visit Diagnoses Diagnosis Encounter for laboratory testing for COVID-19 virus documented in this encounter
== END 2024-12-16 10:04 | disposition home or self-care (01) ==
LOC: HO.HOS 09:39
PROVIDERS: PCP Internal Medicine; Visit Provider Physician Assistant
DX: Z98.890 Other specified postprocedural states (principal)
CPT/HCPCS: 99024

== ENCOUNTER → 2024-12-16 09:39 | Outpatient (BNVA) | payer BC, SELFPAY | PROVIDERS: PCP Internal Medicine; Visit Provider Physician Assistant | DX: Z98.890 Other specified postprocedural states (principal) ==

== ENCOUNTER 2025-01-13 08:27 | Outpatient (AMB) | payer BC, SELFPAY ==
--- NOTE | 2025-01-13 08:36 | A.OFFVIS_ITS ---
Vital Signs 01/13/25 08:37 Height 5 ft 2 in Weight 145 lb BMI 26.5 Intake Visit Reasons: PO RT Shoulder /poss RTC/subscap 12/08/24 NE Intake Note: Sumaya is a 59 year old right hand dominant female who presents today for a post operative visit about 6 weeks s/p Right RTC Repair 12/08/2024. Patient reports that she is dong well, she has mild pain unless she tweaks it. Increased soreness after PT. She is taking Ibuprofen PRN. Allergies No Known Allergies Allergy (Verified 01/13/25 08:37) HPI HPI PO RT Shoulder /poss RTC/subscap 12/08/24 NE: Details: Sumaya is a 59 year old right hand dominant female who presents today for a post operative visit about 6 weeks s/p Right RTC Repair 12/08/2024. Patient reports that she is dong well, she has mild pain unless she tweaks it. Increased soreness after PT. She is taking Ibuprofen PRN. [facility] Medical History DDD (degenerative disc disease), cervical Endometrial cancer Seasonal allergies Osteoarthritis GERD (gastroesophageal reflux disease) Surgical History S/P cervical spinal fusion History of bilateral breast reduction surgery H/O section History of right hip replacement History of left hip replacement H/O esophagogastroduodenoscopy S/P complete hysterectomy Family History Mother Alcoholism Lupus (systemic lupus erythematosus) Father Alcoholism Non Hodgkin's lymphoma Paternal Grandmother Depression Other Substance use Social History Housing: House Are you a primary intensive care unit nurse to a significant other at home: No Do you presently have visiting nurse or other home services: No Alcohol intake: former Comment: Hasnt had a drink in 4 years Patient Tobacco Use Status: Former Tobacco user Tobacco use type: Cigarette Cigarettes Per Day: 4 Years Smoked: 1 e-Cigarette/Vaping Use: Never Used service: No Current occupational status: employed 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 Good scapular control Neurovascularly intact Assessment & Plan Assessment & Plan (1) S/P right rotator cuff repair: Code(s): Z98.890 - Other specified postprocedural states Category: Surgical Plan: This is a 59-year-old woman with right shoulder massive rotator cuff tear with retraction who underwent a rotator cuff repair with patch augmentation. She is doing well although it has only been 6 weeks. I reviewed her pictures with her. She has good relatively pain-free passive range of motion. She may discontinue the sling. She will continue physical therapy as per large repair protocol. Follow up 6 weeks. Coding Level of Care Code Global (77257) Diagnoses S/P right rotator cuff repair Z98.890
[2025-01-13 08:37] VITALS: BMI 26.5
--- OUTSIDE RECORDS SUMMARY | 2025-01-13 08:40 | XMS_ITS | Clinical Summary ---
Author Organization [facility] Address [address] [place] [address] Care Team Providers Care Debit Agent Name Role Phone Susy De Santiago MD Primary Care Provider [phone] Allergies No known active allergies Medications Medication [...] Group Subscriber ID Effective Dates Phone Address [facility] [id number] 02/23-Pres ent [address] [place] [address] [facility] [id number] 2020-Pres ent [address] [place] [address] Care Teams Debit Agent Relationship Specialty Start Date End Date Susy De Santiago MD PCP - General Internal Medicine 09/25/22
--- OUTSIDE RECORDS SUMMARY | 2025-01-13 08:40 | XMS_ITS | Clinical Summary ---
Author Organization [facility] Address [address] [place] [address] Care Team Providers Care Fitness Worker Name Role Phone Susy De Santiago MD Primary Care Provider [phone] Surgical History Surgery Date Site/Laterality Comments SECTION PROCEDURE: HISTORICAL DELIVERY; COMMENT: x3 OTHER SURGICAL HISTORY 1997 PROCEDURE: [place] BIOPSY SOFT TISSUE BACK/FLANK DEEP; COMMENT: cysts removed off back SECTION PROCEDURE: DE DELIVERY ONLY OTHER SURGICAL HISTORY PROCEDURE: [place] UNLISTED LAPAROSCOPY PROCEDURE STOMACH; COMMENT: lap band NECK SURGERY 02/02/2015 PROCEDURE: HISTORICAL NECK SURGERY; COMMENT: Dr Maddie Da Silva;C5-6;C6-7 ACDF HIP ARTHROPLASTY 07/13/2018 Right PROCEDURE: HISTORICAL HIP REPLACEMENT HIP ARTHROPLASTY 01/25/2019 Left PROCEDURE: HISTORICAL HIP REPLACEMENT; COMMENT: Dr. White BREAST SURGERY PROCEDURE: [place] UNLISTED PROCEDURE BREAST; COMMENT: reduction Medical History [...] Recently Relevant to Health Maintenance Care Teams Fitness Worker Relationship Specialty Start Date End Date Susy De Santiago MD PCP - General 09/25/22
--- OUTSIDE RECORDS SUMMARY | 2025-01-13 08:40 | XMS_ITS | Clinical Summary ---
Author Organization [facility] Address [address] [place] [address] Care Team Providers Care Injection Mold Tooling Technician Name Role Phone Unavailable Primary Care [...]
--- OUTSIDE RECORDS SUMMARY | 2025-01-13 08:40 | XMS_ITS | Encounter Summary ---
Author Organization [facility] Address [address] [place] [address] Care Team Providers Care Cancer Genetic Counselor Name Role Phone Unavailable Primary Care Provider Unavailabl e Encounter Details Date Type Department Care Team (Latest Contact Info) Description 09/15/2020 Lab Requisition [facility] COVID Drive Through [address] [place] [address] [address] [place] [address] Sukhwinder Pickett MD [address] [place] [address] Encounter for laboratory testing for [...] Date/Time Associated Diagnosis Comments COVID-19 (SARS-COV-2) - [facility] LAB Routine 09/15/2020 4:18 PM EST [...] - 09/16/2020 4:09 PM EST Performed by [employer] [address] [place] [address], CLIA# [id number] and [place] License# [id number] us Sukhwinder Pickett MD MICROBIOLOGY - GENERAL ORDER GEORGE Final Result YONY MATEUS Rinku RUIZ documented in this encounter Visit Diagnoses Diagnosis Encounter for laboratory testing for COVID-19 virus documented in this encounter
== END 2025-01-13 09:09 | disposition home or self-care (01) ==
LOC: HO.HOS 08:28
PROVIDERS: PCP Internal Medicine; Visit Provider Orthopaedic Surgery
DX: Z98.890 Other specified postprocedural states (principal)
CPT/HCPCS: 99024

== ENCOUNTER → 2025-01-13 08:27 | Outpatient (BNVA) | payer BC, SELFPAY | PROVIDERS: PCP Internal Medicine; Visit Provider Orthopaedic Surgery ==

== ENCOUNTER 2025-02-17 10:06 | Outpatient (AMB) | payer BC, SELFPAY ==
--- NOTE | 2025-02-17 10:14 | MHC.OFFVIS ---
Intake Visit Reasons: PO - RT RTC Repair & Biceps Tenotomy 12/08/24 Intake Note: Sumaya is a 60 year old right hand dominant female who presents today for a post operative visit about 2 months s/p Right RTC Repair & Biceps Tenotomy 12/08/24. Patient reports that she is doing well, she has some shooting pain with certain movements. Denies numbness and tingling. Allergies No Known Allergies Allergy (Verified 01/13/25 08:37) HPI HPI PO - RT RTC Repair & Biceps Tenotomy 12/08/24: Details: Sumaya is 2 and half months status post right rotator cuff repair. She had a massive rotator cuff tear. She is doing pretty well actually. She still has limited motion but feels better than she has in his strong albeit still can not get her hand over her shoulder level PFS Medical History DDD (degenerative disc disease), cervical Endometrial cancer Seasonal allergies Osteoarthritis GERD (gastroesophageal reflux disease) Surgical History S/P cervical spinal fusion History of bilateral breast reduction surgery H/O section History of right hip replacement History of left hip replacement H/O esophagogastroduodenoscopy S/P complete hysterectomy Family History Mother Alcoholism Lupus (systemic lupus erythematosus) Father Alcoholism Non Hodgkin's lymphoma Paternal Grandmother Depression Other Substance use Social History Housing: House Are you a primary memory care program resident to a significant other at home: No Do you presently have visiting nurse or other home services: No Alcohol intake: former Comment: Hasnt had a drink in 4 years Patient Tobacco Use Status: Former Tobacco user Tobacco use type: Cigarette Cigarettes Per Day: 4 Years Smoked: 1 e-Cigarette/Vaping Use: Never Used service: No Current occupational status: employed 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 Stiff but strong. Follow up 3 months. No heavy lifting. Plan Follow up with me in 3 months Coding Level of Care Code Global (54216) Diagnoses S/P right rotator cuff repair Z98.890
== END 2025-02-17 10:30 | disposition home or self-care (01) ==
LOC: HO.HOS 10:06
PROVIDERS: PCP Internal Medicine; Visit Provider Orthopaedic Surgery
DX: Z98.890 Other specified postprocedural states (principal)
CPT/HCPCS: 99024

== ENCOUNTER 2025-04-18 09:01 | Outpatient (RCR) | payer BC, OTHER, SELFPAY ==
--- NOTE | 2024-12-21 10:01 | MHC.PT.EP ---
[facility] [place] Office [place] Office [place] Office [address] [phone] F: [phone] F: [phone] F: [phone] F: [phone] Physical Therapy Plan of Care Date of Evaluation: 12/21/24 Date of Surgery: 12/08/24 Diagnosis: s/p R large RTC repair (supra and infraspinatus), biceps tenotomy on 12/08/24 (RL) Assessment: pt is a 59 y/o female presenting to physical therapy w/ referring diagnosis of S/P right rotator cuff repair. Rotator cuff repair, right with biceps tenotomy 12/08/24 with NE. Large repair protocol. Impairments include pain, decreased range of motion, decreased strength, impaired functional mobility, impaired postural awareness, and altered ambulation mechanics. pt is a good candidate for skilled PT due to age, potential remediation of impairments, typical disease/condition progression and prognosis, comorbidities, and motivation. pt would benefit from skilled PT intervention to provide a tailored strengthening and stretching exercise program, functional training, gait training, postural re-training, neuromuscular re-education, modalities as needed for pain, equipment safety demonstration. Frequency and Duration: The patient will be seen 2x/wk for 12 wks Short Term Goals: pt will be I w/ HEP to promote self-management of condition. pt will be I w/ donning/doffing sling to protect post-operative status. pt will demo 90* of R shoulder flexion AAROM to promote progress w/ protocol. Nutritional Health Coach Goals: pt will report a statistically significant improvement in self-reported outcome measure, SPADI, to promote return to PLOF. pt will demo at least 4/5 R shoulder strength all planes to promote return to I level ADLs. Treatment Plan: Modalities to reduce pain, spasms and effusion. Manual therapy to restore motion and function. Therapeutic exercise to improve strength and flexibility. Neuromuscular re-education for posture and balance. Therapeutic activities to return to functional activities of daily living. Electronically signed by: Mame Zayas PT, DPT Please sign and return to therapist. Thank you for your referral.
--- NOTE | 2025-05-17 08:37 | MHC.PT.DC ---
[facility] Mobile Office [place] [facility] [place] Office [address] Milly Reardon [address] [phone] F: [phone] F: [phone] F: [phone] F: [phone] Physical Therapy Discharge Report Diagnosis: s/p R large RTC repair (supra and infraspinatus), biceps tenotomy on 12/08/24 (RL) Date of Surgery: 12/08/24 Date of Evaluation: 12/21/24 Date of Discharge: 05/17/25 Treatments to Date: 26 Cancellations to Date: 3 No Shows to Date: 1 Discharge Status: Discharge Summary: The patient in the beginning stages of this plan of care was progressing well with no concerns. Around the middle of February the patient went on vacation where she fell and used her post-operative arm to catch her and then her large dog pulled the same arm. She was having increased pain and difficulty with our plan of care around that time. The focus upon her return was to continue to maximize range. She was struggling with compensatory patterns in flexion and abduction ranges. Unfortunately, she has not been seen in our office in 30 days. She discussed with our department she was going through a change of insurance but we anticipated it would not be a problem. At this time, I have to discharge her chart. I did see she had a post-op follow-up on 05/09/25 where she denied any concerns and reported doing well. Should she require additional PT in the future she will require a new script. Electronically signed by: Mame Zayas PT, DPT Please sign and return to therapist. Thank you for your referral.
== END 2025-05-17 08:40 | disposition home or self-care (01) ==
LOC: HO.PT 09:01
PROVIDERS: PCP Internal Medicine; Visit Provider Physician Assistant
DX: Z47.89 Encounter for other orthopedic aftercare (principal); Z98.890 Other specified postprocedural states
CPT/HCPCS: 97014; 97110; 97140; 97161; 97164

== ENCOUNTER 2025-05-09 10:53 | Outpatient (AMB) | payer OTHER, SELFPAY ==
--- NOTE | 2025-05-09 10:59 | MHC.OFFVIS ---
Intake Visit Reasons: OV-RT RTC Repair & Biceps Tenotomy 12/08/24 Intake Note: Sumaya is a 60 year old right hand dominant female who presents today for a follow up about 5 months s/p Right Rotator Cuff Repair and Biceps Tenotomy 12/08/24 Patient rpeorts that she is dong well and has no concerns at this time Allergies No Known Allergies Allergy (Verified 01/13/25 08:37) HPI HPI OV-RT RTC Repair & Biceps Tenotomy 12/08/24: Details: Sumaya is a 60 year old right hand dominant female who presents today for a follow up about 5 months s/p Right Rotator Cuff Repair and Biceps Tenotomy. She had a chronic retracted tear. 12/08/24 Patient reports that she is dong well and has no concerns at this time [facility] Medical History DDD (degenerative disc disease), cervical Endometrial cancer Seasonal allergies Osteoarthritis GERD (gastroesophageal reflux disease) Surgical History S/P cervical spinal fusion History of bilateral breast reduction surgery H/O section History of right hip replacement History of left hip replacement H/O esophagogastroduodenoscopy S/P complete hysterectomy Family History Mother Alcoholism Lupus (systemic lupus erythematosus) Father Alcoholism Non Hodgkin's lymphoma Paternal Grandmother Depression Other Substance use Social History Housing: House Are you a primary child day care center worker to a significant other at home: No Do you presently have visiting nurse or other home services: No Alcohol intake: former Comment: Hasnt had a drink in 4 years Patient Tobacco Use Status: Former Tobacco user Tobacco use type: Cigarette Cigarettes Per Day: 4 Years Smoked: 1 e-Cigarette/Vaping Use: Never Used service: No 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 Overall she is doing quite well. She has some restricted motion which she understands relates to the severity of initial tear. She will continue to use caution with excessive motion or overhead lifting. Follow up to see me at the 9 month point. Coding Level of Care Code Est Pt Level 3 (37073) Diagnoses S/P right rotator cuff repair Z98.890
--- OUTSIDE RECORDS SUMMARY | 2025-05-09 14:28 | XMS_ITS | Clinical Summary ---
Author Organization [facility] Address [address] [place] [address] Care Team Providers Care Pile Driver Operator Name Role Phone Susy De Santiago MD Primary Care Provider [phone] Surgical History Surgery Date Site/Laterality Comments SECTION PROCEDURE: HISTORICAL DELIVERY; COMMENT: x3 OTHER SURGICAL HISTORY 1997 PROCEDURE: [place] BIOPSY SOFT TISSUE BACK/FLANK DEEP; COMMENT: cysts removed off back SECTION PROCEDURE: CA DELIVERY ONLY OTHER SURGICAL HISTORY PROCEDURE: [place] UNLISTED LAPAROSCOPY PROCEDURE STOMACH; COMMENT: lap band NECK SURGERY 02/02/2015 PROCEDURE: HISTORICAL NECK SURGERY; COMMENT: Dr Maddie Da Silva;C5-6;C6-7 ACDF HIP ARTHROPLASTY 07/13/2018 Right PROCEDURE: HISTORICAL HIP REPLACEMENT HIP ARTHROPLASTY 01/25/2019 Left PROCEDURE: HISTORICAL HIP REPLACEMENT; COMMENT: Dr. White BREAST SURGERY PROCEDURE: [place] UNLISTED PROCEDURE BREAST; COMMENT: reduction Medical History [...] 04/07/2012, 08/09/1993 Colorectal Cancer Screening: Colonoscopy 07/28/2022 HIV Screening 07/28/2022 Hepatitis C Screening 07/28/2022 Social Influencers of Health Screening 07/28/2022 Depression Screening 08/25/2024 Breast Cancer Screening 04/10/2025 04/10/20 23, 03/27/2021, 03/13/2020, Additional history exists COVID-19 Vaccine ( - season) 2025 Influenza Vaccine (#1) 2025 RSV Immunization Adult Patients (1 - 1-dose 75+ series) 2041 MMR Vaccines Aged Out 05/05/2012, 04/07/2012 No [...] interpreted with the aid of computer-aided detection. Comparison is made with 03/27/2021 and as far back as 03/10/2019. History of bilateral reduction mammoplasty. Breast parenchyma is composed of scattered fibroglandular densities. No new suspicious mass, architectural distortion, or suspicious [...] Recently Relevant to Health Maintenance Care Teams Pile Driver Operator Relationship Specialty Start Date End Date Susy De Santiago MD PCP - General 09/25/22
--- OUTSIDE RECORDS SUMMARY | 2025-05-09 14:28 | XMS_ITS | Clinical Summary ---
Author Organization [facility] Address [address] [place] [address] Care Team Providers Care All Source Collection Manager Name Role Phone Unavailable Primary Care Provider [...] of 2) 02/06/2016 COVID-19 Vaccine (1 - season) 2025
--- OUTSIDE RECORDS SUMMARY | 2025-05-09 14:28 | XMS_ITS | Clinical Summary ---
Author Organization [facility] Address [address] [place] [address] Care Team Providers Care Shooting Gallery Operator Name Role Phone Susy De Santiago MD Primary Care Provider [phone] Allergies No known active allergies Medications Medication [...] AM EST Pulse - - Temperature 36.3 C (97.4 F) 10/21/2022 8:39 AM EST Respiratory Rate - - Oxygen Saturation 99% [...] Tdap) 04/07/2022 04/07/2012, 08/09/1993 Influenza Vaccine (#1) 2025 Pneumococcal Vaccine Aged Out No long er eligible based on patient's age to complete this topic RSV Ped < 20 months Aged Out No longe r eligible based on patient's age to complete this topic Insurance Payer Benefit Plan / Group Subscriber ID Effective Dates Phone Address Type [facility] [id number] 02/23-Pres ent [address] [place] [address] [facility] [id number] 2020-Pres ent [address] [place] [address] Care Teams Shooting Gallery Operator Relationship Specialty Start Date End Date Susy De Santiago MD PCP - General Internal Medicine 09/25/22
--- OUTSIDE RECORDS SUMMARY | 2025-05-09 14:28 | XMS_ITS | Encounter Summary ---
Author Organization [facility] Address [address] [place] [address] Care Team Providers Care Hot Saw Helper Name Role Phone Unavailable Primary Care Provider Unavailabl e Encounter Details Date Type Department Care Team (Latest Contact Info) Description 09/15/2020 Lab Requisition [facility] COVID Drive Through [address] [place] [address] [address] [place] [address] Sukhwinder Pickett MD [address] [place] [address] Encounter for laboratory testing for [...] Date/Time Associated Diagnosis Comments COVID-19 (SARS-COV-2) - [facility] LAB Routine 09/15/2020 4:18 PM EST [...] - 09/16/2020 4:09 PM EST Performed by [employer] [address] [place] [address], CLIA# [id number] and [place] License# [id number] us Sukhwinder Pickett MD MICROBIOLOGY - GENERAL ORDER GEORGE Final Result YONY MATEUS Rinku RUIZ documented in this encounter Visit Diagnoses Diagnosis Encounter for laboratory testing for COVID-19 virus documented in this encounter
== END 2025-05-09 11:43 | disposition home or self-care (01) ==
LOC: HO.HOS 10:54
PROVIDERS: PCP Internal Medicine; Visit Provider Orthopaedic Surgery
DX: Z47.89 Encounter for other orthopedic aftercare (principal); S46.011D Strain of muscle(s) and tendon(s) of the rotator cuff of right shoulder, subsequent encounter; S43.431D Superior glenoid labrum lesion of right shoulder, subsequent encounter
CPT/HCPCS: 99213

== ENCOUNTER 2025-07-04 08:18 | Outpatient (AMB) | payer OTHER, SELFPAY ==
--- NOTE | 2025-07-04 08:27 | A.OFFPC_ITS ---
Vital Signs 07/04/25 08:29 Height 5 ft 2 in Weight 135 lb 6 oz BMI 24.8 BP 94/66 Blood Pressure Location Rt brachial Position Sitting Respiration 12 Pulse 76 Pulse Source Pulse Oximeter Temp 98.2 F Temp Source Oral Pulse Oximetry (%) 99 Oxygen Delivery Method Room Air Intake Visit Reasons: cpe Intake Note: Physical [employer] Required: No Allergies No Known Allergies Allergy (Verified 07/04/25 08:27) Tobacco use date assessed: 07/04/25 Dental Screening Dental Screen Date: 07/04/25 Did you have a dental visit in the last 12 months?: Yes Did you have a dental problem in the last 6 months where you did not have access to dental care?: No Was dental information given to patient?: Patient has dentist HPI HPI Comments History of Present Illness Details The is a 60 year old female wihtha past medical history of GERD, menopause, OA, seasonal allergies, endomteroioid carcinoma, cervical DDD presenting for CPE Heme/Onc: 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 Underwent hysterectomy, BSO and left external iliac and right obturator sentinel LN biopsy. Follow ups are out to annually. Dr Tadeo. GI: Had EGD with Dr Newman. No H pylori or barretts OA: She has a history of C4-C7 cervical fusion and bilateral hip replacement surgeries Got an 12 and 13 year old foster children. Doing well Mammo: ordered Cologuard 04/02/2022-due Got flu, covid, rsv shot ROS CONSTITUTIONAL: Denies weight loss, fever and chills. HEENT: Denies changes in vision and hearing. RESPIRATORY: Denies SOB and cough. CV: Denies palpitations and CP GI: Denies abdominal pain, nausea, vomiting and diarrhea. : Denies dysuria and urinary frequency. MSK: Denies new myalgia and joint pain. SKIN: Denies rash and pruritus. NEUROLOGICAL: Denies headache PSYCHIATRIC: Denies recent changes in mood. PHYSICAL EXAM: GENERAL: Alert and oriented x 3. NAD EYES: EOMI. Anicteric. HENT: Moist mucous membranes. No scleral icterus. No cervical lymphadenopathy. LUNGS: Clear to auscultation bilaterally. CARDIOVASCULAR: Regular rate and rhythm. No murmur. No JVD. ABDOMEN: Soft, non-tender +bs EXTREMITIES: No edema. Non-tender. SKIN: No rashes or lesions. Warm. NEUROLOGIC: No focal neurological deficits. CN II-XII grossly intact PSYCHIATRIC: Cooperative. Appropriate mood and affect [facility] Medical History (Updated 07/04/25 @ 09:00 by Susy De Santiago MD) DDD (degenerative disc disease), cervical Endometrial cancer Seasonal allergies Osteoarthritis GERD (gastroesophageal reflux disease) Surgical History S/P cervical spinal fusion History of bilateral breast reduction surgery H/O section History of right hip replacement History of left hip replacement H/O esophagogastroduodenoscopy S/P complete hysterectomy Family History Mother Alcoholism Lupus (systemic lupus erythematosus) Father Alcoholism Non Hodgkin's lymphoma Paternal Grandmother Depression Other Substance use Social History Housing: House Are you a primary skin care instructor to a significant other at home: No Do you presently have visiting nurse or other home services: No Alcohol intake: former Comment: Hasnt had a drink in 4 years Patient Tobacco Use Status: Former Tobacco user Tobacco use type: Cigarette Cigarettes Per Day: 4 Years Smoked: 1 e-Cigarette/Vaping Use: Never Used service: No Current occupational status: employed 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 1. Little interest or pleasure in doing things: not at all 2. Feeling down, depressed, or hopeless: not at all 3. Trouble falling or staying asleep, or sleeping too much: not at all 4. Feeling tired or having little energy: not at all 5. Poor appetite or overeating: not at all 6. Feeling bad about yourself - or that you are a failure or have let yourself or your family down: not at all 7. Trouble concentrating on things, such as reading the newspaper or watching television: not at all 8. Moving or speaking so slowly that other people could have noticed. Or the opposite - being so fidgety or restless that you have been moving around a lot more than usual: not at all 9. Thoughts that you would be better off or of hurting yourself in some way: not at all Total score: 0 Depression Screening Interpretation: Negative Depression Screening Done: Yes 14178 - PHQ-9 Billing: Yes Source: Developed by Drs. Ga Quiroga, Maria Alejandra Stanley, Joey Rodriguez and colleagues, with an educational elizabeth from [employer]. Thrive Questionnaire Date Thrive assessed: 06/27/25 I am a: Patient What is your living situation today?: I have a steady place to live Within the past 12 months, did the food you bought not last and you didn't have the money to get more?: Never true Within the past 12 months, did you worry whether your food would run out before you got money to buy more?: Never true Do you have trouble paying for medicines?: No Do you have trouble getting transportation to medical appointments?: No Do you have trouble paying your heating and electricity bill?: No Do you have trouble taking care of your child, family member or friend?: No Do you have trouble with day-to-day activities such as bathing, preparing meals, shopping, managing finances, etc.?: No Are you currently unemployed and looking for a job?: No Are you interested in more education?: Yes Please select the resources that you would like help with: None Currently or been in a relationship where the following occur: No concerns reported THRIVE Score: 0 AUDIT C Alcohol Use Questionnaire (AUDIT-C) 1. How often do you have a drink containing alcohol?: Monthly or less 2. How many drinks containing alcohol do you have on a typical day when you are drinking?: 1 or 2 3. How often do you have six or more drinks on one occasion?: Never Total Score: 1 PUNEET-7 AMB Questionnaire PUNEET-7 Date PUNEET - 7 assessed: 07/04/25 Feeling nervous, anxious, or on edge: 0 = Not at all Not being able to stop or control worryin = Not at all Worrying too much about different things: 0 = Not at all Trouble relaxin = Nearly every day Being so restless that it is hard to sit still: 3 = Nearly every day Becoming easily annoyed or irritable: 0 = Not at all Feeling afraid as if something awful might happen: 0 = Not at all Total PUNEET-7 score (0-4 normal; 5-9 mild; 10-14 moderate; 15-21 severe): 6 Source: Developed by Drs. Ga Quiroga, Maria Alejandra Stanley, Joey Rodriguez and colleagues, with an educational elizabeth from [employer]. Physical exam (Primary Care) Vital Signs: Last Vital Signs Temp 98.2 F 07/04/25 08:29 Pulse 76 07/04/25 08:29 Resp 12 07/04/25 08:29 BP 94/66 07/04/25 08:29 Pulse Ox 99 07/04/25 08:29 Oxygen Delivery Method Room Air 07/04/25 08:29 BMI result Body Mass Index 24.8 Tobacco/Smoking Status: Tobacco use Status Tobacco use date assessed 07/04/25 07/04/25 08:34 Patient Tobacco Use Status Former Tobacco user 07/04/25 08:28 Tobacco use type Cigarette 07/04/25 08:28 e-Cigarette/Vaping Use Never Used 07/04/25 08:28 PHQ-9: PHQ-9 Score PHQ-9: Total score 0 07/04/25 08:40 Depression Screening Interpretation: Negative Thrive Assessment: Date of Thrive Assessment Date Thrive assessed 06/27/25 07/04/25 08:28 Currently or been in a relationship where the following occur: No concerns reported Coding Level of Care Code Est Pt Prev Care 40-64y(58866) Diagnoses Physical exam Z00.00 Endometrial cancer C54.1 Additional Codes PHQ-9 - 95859 - PHQ-9 Billing: Yes ([id number]) Assessment & Plan Assessment & Plan (1) Physical exam: Code(s): Z00.00 - Encounter for general adult medical examination without abnormal findings (2) Endometrial cancer: Code(s): C54.1 - Malignant neoplasm of endometrium Category: Medical Plan CPE Interval history reviewed Preventive measures for age reviewed. Mammo and cologuard ordered Endometrial cancer-continue follow up heme/onc Orders: Orders MM tomosynthesis screening BI Today C54.1 - Malignant neoplasm of endometrium, R35.89 - Other polyuria, Z12.31 - Encounter for screening mammogram for malignant neoplasm of breast, Z13.0 - Encounter for screening for diseases of the blood and blood-forming organs and certain disorders involving the immune mechanism, Z13.220 - Encounter for screening for lipoid disorders, Z13.228 - Encounter for screening for other metabolic disorders, Z86.39 - Personal history of other endocrine, nutritional and metabolic disease Comprehensive Met. Panel Today C54.1 - Malignant neoplasm of endometrium, R35.89 - Other polyuria, Z13.0 - Encounter for screening for diseases of the blood and blood-forming organs and certain disorders involving the immune mechanism, Z13.220 - Encounter for screening for lipoid disorders, Z13.228 - Encounter for screening for other metabolic disorders, Z86.39 - Personal history of other endocrine, nutritional and metabolic disease Lipid Panel Today C54.1 - Malignant neoplasm of endometrium, R35.89 - Other polyuria, Z13.0 - Encounter for screening for diseases of the blood and blood- forming organs and certain disorders involving the immune mechanism, Z13.220 - Encounter for screening for lipoid disorders, Z13.228 - Encounter for screening for other metabolic disorders, Z86.39 - Personal history of other endocrine, nutritional and metabolic disease Hemoglobin A1c Today C54.1 - Malignant neoplasm of endometrium, R35.89 - Other polyuria, Z13.0 - Encounter for screening for diseases of the blood and blood- forming organs and certain disorders involving the immune mechanism, Z13.220 - Encounter for screening for lipoid disorders, Z13.228 - Encounter for screening for other metabolic disorders, Z86.39 - Personal history of other endocrine, nutritional and metabolic disease TSH reflex Free T4 Today C54.1 - Malignant neoplasm of endometrium, R35.89 - Other polyuria, Z13.0 - Encounter for screening for diseases of the blood and blood-forming organs and certain disorders involving the immune mechanism, Z13.220 - Encounter for screening for lipoid disorders, Z13.228 - Encounter for screening for other metabolic disorders, Z86.39 - Personal history of other endocrine, nutritional and metabolic disease Complete Blood Count Auto Diff Today C54.1 - Malignant neoplasm of endometrium, R35.89 - Other polyuria, Z13.0 - Encounter for screening for diseases of the blood and blood-forming organs and certain disorders involving the immune mechanism, Z13.220 - Encounter for screening for lipoid disorders, Z13.228 - Encounter for screening for other metabolic disorders, Z86.39 - Personal history of other endocrine, nutritional and metabolic disease Referrals Cologuard Test Z12.11 - Encounter for screening for malignant neoplasm of colon, Z12.12 - Encounter for screening for malignant neoplasm of rectum Medications: Refilled ondansetron 4 mg PO Q8H PRN 60 tabs 0RF nausea and vomiting 30 days
[2025-07-04 08:29] VITALS: BP 94/66; PULSE 76; RESP 12; TEMP 36.8; O2SAT 99; BMI 24.8
--- OUTSIDE RECORDS SUMMARY | 2025-07-04 08:41 | XMS_ITS | Clinical Summary ---
Author Organization [facility] Address [address] [place] [id number] Care Team Providers Care Bag Machine Adjuster Name Role Phone Susy De Santiago MD Primary Care Provider [phone] Allergies No known active allergies Medications Medication [...] Subscriber ID Effective Dates Phone Address Type [facility] [id number] 02/23-Pres ent [address] [place] [address] [facility] [id number] 2020-Pres ent [address] [place] [address] Care Teams Bag Machine Adjuster Relationship Specialty Start Date End Date Susy De Santiago MD PCP - General Internal Medicine 09/25/22
--- OUTSIDE RECORDS SUMMARY | 2025-07-04 08:41 | XMS_ITS | Clinical Summary ---
Author Organization [facility] Address [address] [place] [address] Care Team Providers Care Pump Machine Operator Name Role Phone Susy De Santiago MD Primary Care Provider [phone] Surgical History Surgery Date Site/Laterality Comments SECTION PROCEDURE: HISTORICAL DELIVERY; COMMENT: x3 OTHER SURGICAL HISTORY 1997 PROCEDURE: CO BIOPSY SOFT TISSUE BACK/FLANK DEEP; COMMENT: cysts removed off back SECTION PROCEDURE: CO DELIVERY ONLY OTHER SURGICAL HISTORY PROCEDURE: CO UNLISTED LAPAROSCOPY PROCEDURE STOMACH; COMMENT: lap band NECK SURGERY 02/02/2015 PROCEDURE: HISTORICAL NECK SURGERY; COMMENT: Dr Maddie Da Silva;C5-6;C6-7 ACDF HIP ARTHROPLASTY 07/13/2018 Right PROCEDURE: HISTORICAL HIP REPLACEMENT HIP ARTHROPLASTY 01/25/2019 Left PROCEDURE: HISTORICAL HIP REPLACEMENT; COMMENT: Dr. White BREAST SURGERY PROCEDURE: CO UNLISTED PROCEDURE BREAST; COMMENT: reduction Medical History [...] Health Maintenance Due Date Last Done Comments Colorectal Cancer Screening: Colonoscopy 1966 Hepatitis B Vaccines (1 of 3 - 19+ 3-dose series) 1985 Cervical Cancer Screening: Pap Smear 1987 Pneumococcal Vaccine: 50+ Years (1 of 1 - PCV) 02/06/2016 Zoster Vaccines (1 of 2) 02/06/2016 DTaP,Tdap,and Td Vaccines (3 - Td or Tdap) 04/07/2022 04/07/2012, 08/09/1993 HIV Screening 07/28/2022 Hepatitis C Screening 07/28/2022 [...] Recently Relevant to Health Maintenance Care Teams Pump Machine Operator Relationship Specialty Start Date End Date Susy De Santiago MD PCP - General 09/25/22
== END 2025-07-04 09:00 | disposition home or self-care (01) ==
LOC: HO.HMCFM 08:19
PROVIDERS: PCP Internal Medicine; Visit Provider Internal Medicine
DX: Z00.00 Encounter for general adult medical examination without abnormal findings (principal); C54.1 Malignant neoplasm of endometrium

== ENCOUNTER 2025-07-04 08:18 | Outpatient (REF) | payer OTHER, SELFPAY ==
[2025-07-04 11:20] LABS: MANUAL DIFF FLAG NO
[2025-07-04 11:27] LABS: Hematocrit 40.5 % (37.0-47.0); Hemoglobin 13.2 g/dl (12.0-16.0); Imm Gran Abs Auto 0.02 X10*3/uL (0.00-0.03); Imm Gran Pct Auto 0.3 % (0.0-0.4); Lymphocytes Absolute Auto 2.8 X10*3/uL (1.2-4.9); Mean Corpuscular HGB Conc 32.6 g/dl (31.0-35.0); Mean Corpuscular Hemoglobin 28.1 pg (27.0-33.0); Mean Corpuscular Volume 86.4 fL (80.0-98.0); NRBC Abs Auto 0.000 X10*3/uL (0.0-0.012); NRBC Pct Auto 0.0 /100WBC (0.0-0.2); Platelet Count 332 X10*3/uL (160-400); Red Blood Count 4.69 X10*6/uL (4.20-5.50); White Blood Count 6.5 X10*3/uL (4.8-10.8)
[2025-07-04 12:34] LABS: Alanine Aminotransferase 16 U/L (0-31); Albumin Level 4.5 g/dL (3.5-5.0); Alkaline Phosphatase 56 U/L (39-117); Anion Gap 12 (12-20); Aspartate Amino Transferase 22 U/L (5-31); Blood Urea Nitrogen 10 mg/dL (9-16); Calcium 9.5 mg/dL (8.4-10.2); Carbon Dioxide 25 mmol/L (22-29); Chloride 105 mmol/L (96-108); Cholesterol 253 mg/dL (<200); Estimated Glomerular Filt Rate > 60; HDL Cholesterol 67 mg/dL (>40); Potassium 4.2 mmol/L (3.3-5.1); Sodium 138 mmol/L (135-145); Total Protein 7.0 g/dL (6.5-8.0); Triglycerides 58 mg/dL (<150)
== END 2025-07-04 08:19 | disposition home or self-care (01) ==
LOC: HO.WFDLDS 08:18
PROVIDERS: PCP Internal Medicine; Visit Provider Internal Medicine
DX: Z00.00 Encounter for general adult medical examination without abnormal findings (principal); C54.1 Malignant neoplasm of endometrium; R35.89 Other polyuria; Z13.220 Encounter for screening for lipoid disorders; Z13.228 Encounter for screening for other metabolic disorders; Z13.0 Encounter for screening for diseases of the blood and blood-forming organs and certain disorders involving the immune mechanism; Z86.39 Personal history of other endocrine, nutritional and metabolic disease
CPT/HCPCS: 36415; 80053; 80061; 83036; 84443; 85025; 96127